=== PATIENT | male | born 1945 | race Hispanic/Latino ===

== ENCOUNTER 2018-06-30 19:54 | Emergency (ER) | payer MEDICARE ==
[2018-06-30] MEDS ORDERED: ONDANSETRON HCL 4 MG/2 ML VIAL ONE (20:19)
[2018-06-30] MEDS ORDERED: MORPHINE SULFATE 4 MG/1ML SYG ONE (20:20)
[2018-06-30 20:26] LABS: EOSINOPHILS % (AUTO) 2.2 % (0.0-8.0); HEMATOCRIT 47.2 % (42-54); LYMPHOCYTES % (AUTO) 24.2 % (21.0-51.0); MEAN CORPUSCULAR HEMOGLOBIN 31.4 pg (27.0-33.0); MEAN CORPUSCULAR HGB CONC 33.6 g/dL (32.0-36.0); MEAN CORPUSCULAR VOLUME 93.2 fL (79-99); MONOCYTES % (AUTO) 8.5 % (3.0-13.0); NEUTROPHILS % (AUTO) 64.1 % (40.0-77.0); PLATELET COUNT (AUTO) 266 K/uL (130-400); RED BLOOD CELL COUNT(AUTO) 5.07 MIL/uL (4.50-6.20); RED CELL DISTRIBUTION WIDTH 13.1 % (11.0-15.5); WHITE BLOOD COUNT (AUTO) 5.8 K/uL (4.8-10.8)
[2018-06-30 20:45] LABS: CREATININE 1.5 mg/dL (0.5-1.5); INR 0.96 (0.85-1.15); PARTIAL THROMBOPLASTIN TIME 26.4 SEC (26.3-35.5); PROTHROMBIN TIME 10.1 SEC (9.6-11.6)
[2018-06-30 20:48] LABS: B-TYPE NATRIURETIC PEPTIDE 40 pg/mL (0-100)
[2018-06-30 20:50] LABS: ALBUMIN 3.6 g/dL (3.5-5.0); BILIRUBIN,TOTAL 0.5 mg/dL (0.2-1.0); TOTAL PROTEIN, SERUM 7.5 g/dL (6.0-8.3)
[2018-06-30 21:14] LABS: APPEARANCE,URINE Clear (CLEAR); BILIRUBIN,URINE Negative (NEGATIVE); COLOR,URINE Yellow (YELLOW); GLUCOSE, URINE (UA) Negative (NEGATIVE); KETONES,URINE Negative (NEGATIVE); LEUKOCYTE ESTERASE ,URINE Negative (NEGATIVE); NITRATE,URINE Negative (NEGATIVE); OCCULT BLOOD,URINE Negative (NEGATIVE); PH,URINE 5.5 (5.0-8.0); PROTEIN,URINE Negative (NEGATIVE)
== END 2018-06-30 22:12 | disposition home or self-care (01) ==
LOC: EDH 19:54
DX: R10.12 Left upper quadrant pain (principal); I10 Essential (primary) hypertension; Z90.5 Acquired absence of kidney; Z88.0 Allergy status to penicillin
CPT/HCPCS: 36415; 74176; 80053; 81003; 82550; 83690; 83880; 84484; 85025; 85610; 85730; 93005; 96374; 96375; 99284; J2270; J2405

== ENCOUNTER 2021-09-07 03:47 | Observation (INO) | payer MEDICARE ==
[~2021-09-07] VITALS: Ht 160 cm; Wt 71.0 kg
[2021-09-07 04:08] LABS: BASOPHILS % (AUTO) 0.4 % (0.0-5.0); HEMATOCRIT 25.1 % (42-54); LYMPHOCYTES % (AUTO) 17.5 % (21.0-51.0); MEAN CORPUSCULAR HEMOGLOBIN 26.6 pg (27.0-33.0); MEAN CORPUSCULAR HGB CONC 31.1 g/dL (32.0-36.0); MEAN CORPUSCULAR VOLUME 85.7 fL (79-99); NEUTROPHILS % (AUTO) 73.6 % (40.0-77.0); PLATELET COUNT (AUTO) 336 K/uL (130-400); RED BLOOD CELL COUNT(AUTO) 2.93 MIL/uL (4.50-6.20); RED CELL DISTRIBUTION WIDTH 13.2 % (11.0-15.5); WHITE BLOOD COUNT (AUTO) 10.1 K/uL (4.8-10.8)
[2021-09-07 04:23] LABS: CREATININE 1.4 mg/dL (0.5-1.5); POTASSIUM 4.1 mmol/L (3.5-5.1)
[2021-09-07 04:27] LABS: ALBUMIN 2.1 g/dL (3.5-5.0); BILIRUBIN,TOTAL 0.1 mg/dL (0.2-1.0); TOTAL PROTEIN, SERUM 5.7 g/dL (6.0-8.3)
[2021-09-07] MEDS ORDERED: LEVETIRACETAM 500 MG/5 ML SD VIAL IV ONE (04:30)
[2021-09-07] MEDS ORDERED: 0.9%NACL 100ML 100 ML ONE (04:36)
[2021-09-07 05:13] LABS: APPEARANCE,URINE Clear (CLEAR); BILIRUBIN,URINE Negative (NEGATIVE); COLOR,URINE Yellow (YELLOW); GLUCOSE, URINE (UA) Negative (NEGATIVE); KETONES,URINE Negative (NEGATIVE); LEUKOCYTE ESTERASE ,URINE Negative (NEGATIVE); NITRATE,URINE Negative (NEGATIVE); OCCULT BLOOD,URINE Negative (NEGATIVE); PH,URINE 5.5 (5.0-8.0); PROTEIN,URINE Negative (NEGATIVE); UROBILINOGEN,URINE 0.2 mg/dL (0.2-1.0)
[2021-09-07] MEDS: LEVETIRACETAM 500 MG in 0.9%NACL 100ML 100 ML IV SCH ×2 (09:00→21:59)
[2021-09-07] MEDS ORDERED: 0.9%NACL 1000ML 1,000 ML IV ONE (09:00)
[2021-09-07] MEDS ORDERED: DIATR MEGLU/DIATRIZOATE SODIUM 30 ML BOTTLE ONE (10:47)
[2021-09-07 13:50] VITALS: BP 129/73
[2021-09-07] MEDS ORDERED: TAMS-1 PO (14:27)
[2021-09-07] MEDS ORDERED: OMEP40CA21 PO (14:27)
[2021-09-07] MEDS ORDERED: ACET-66 PO (14:27)
[2021-09-07] MEDS ORDERED: HYDR-4060 PO (14:27)
[2021-09-07] MEDS ORDERED: LORA10TA7 PO (14:27)
[2021-09-07] MEDS ORDERED: SUCR1TAB2 PO (14:27)
[2021-09-07] MEDS ORDERED: LOSA1TAB37 PO (14:27)
[2021-09-07] MEDS ORDERED: MORPHINE 2 MG SYG IVP PRN (15:30)
[2021-09-07] MEDS ORDERED: IOHEXOL-350 75 ML VIAL IV ONE (16:25)
[2021-09-07 19:43] VITALS: BP 117/64
[2021-09-07 23:27] VITALS: BP 113/58
[2021-09-08 03:33] VITALS: BP 108/56
[2021-09-08 07:05] VITALS: BP 117/52
[2021-09-08] MEDS: LEVETIRACETAM 500 MG in 0.9%NACL 100ML 100 ML IV SCH (08:14)
[2021-09-08 11:05] VITALS: BP 112/57
[2021-09-08 14:39] LABS: HEMATOCRIT 24.5 % (42-54); MEAN CORPUSCULAR HEMOGLOBIN 26.2 pg (27.0-33.0); MEAN CORPUSCULAR HGB CONC 30.6 g/dL (32.0-36.0); MEAN CORPUSCULAR VOLUME 85.7 fL (79-99); PLATELET COUNT (AUTO) 307 K/uL (130-400); RED BLOOD CELL COUNT(AUTO) 2.86 MIL/uL (4.50-6.20); RED CELL DISTRIBUTION WIDTH 13.1 % (11.0-15.5); WHITE BLOOD COUNT (AUTO) 5.9 K/uL (4.8-10.8)
[2021-09-08 14:46] LABS: POTASSIUM 3.5 mmol/L (3.5-5.1)
[2021-09-08 15:05] VITALS: BP 114/64
[2021-09-08] MEDS ORDERED: LEVE-43 PO (15:50)
[2021-09-08] MEDS ORDERED: DOCU240C25 PO (15:50)
[2021-09-08] MEDS ORDERED: FERR325T22 PO (15:50)
[2021-09-08] MEDS ORDERED: IRON SUCROSE COMPLEX 100 MG in 0.9%NACL 50ML 50 ML IV ONE (16:00)
[2021-09-08] MEDS ORDERED: IRON SUCROSE COMPLEX 100 MG/5 ML VIAL IVP SCH (16:30)
== END 2021-09-08 17:50 | disposition home or self-care (01) ==
LOC: EDH 03:47 → INTOOBSV 08:43 → EDHIP 08:43 → 4CH 13:51
PROVIDERS: ADMIT Internal Medicine; ATTEND Internal Medicine
DX: G40.409 Other generalized epilepsy and epileptic syndromes, not intractable, without status epilepticus (principal); C80.1 Malignant (primary) neoplasm, unspecified; C79.31 Secondary malignant neoplasm of brain; I12.9 Hypertensive chronic kidney disease with stage 1 through stage 4 chronic kidney disease, or unspecified chronic kidney disease; N18.30 Chronic kidney disease, stage 3 unspecified; D63.1 Anemia in chronic kidney disease; K21.9 Gastro-esophageal reflux disease without esophagitis; E88.09 Other disorders of plasma-protein metabolism, not elsewhere classified; E78.00 Pure hypercholesterolemia, unspecified; Z95.0 Presence of cardiac pacemaker; Z85.46 Personal history of malignant neoplasm of prostate; Z86.73 Personal history of transient ischemic attack (TIA), and cerebral infarction without residual deficits; Z79.899 Other long term (current) drug therapy; Z88.0 Allergy status to penicillin; W01.0XXA Fall on same level from slipping, tripping and stumbling without subsequent striking against object, initial encounter; Z90.5 Acquired absence of kidney; Z90.79 Acquired absence of other genital organ(s)
CPT/HCPCS: 36415 ×2; 70450; 71045; 72125; 74176; 74177; 80048; 80053; 81003; 82550; 84145; 84484; 85025; 85027; 86850; 86900; 86901; 93005; 96365; 96366 ×2; 96375 ×2; 96376; 99285; G0378 ×33; J1756; J1953 ×4; J7030; Q9963; Q9967

== ENCOUNTER 2021-09-28 01:27 | Emergency (ER) | payer MEDICARE ==
[~2021-09-28] VITALS: Ht 160 cm; Wt 69.9 kg
[~2021-09-28 01:27] MED LIST: ACET-66 PO; DOCU240C25 PO; FERR325T22 PO; HYDR-4060 PO; LEVE-43 PO; LORA10TA7 PO; LOSA1TAB37 PO; OMEP40CA21 PO; SUCR1TAB2 PO; TAMS-1 PO
[2021-09-28] MEDS ORDERED: LEVETIRACETAM 500 MG/5 ML SD VIAL IV ONE (01:52)
[2021-09-28] MEDS ORDERED: LEVETIRACETAM 1,000 MG in 0.9%NACL 100ML 100 ML IV ONE (02:00)
[2021-09-28] MEDS ORDERED: LEVETIRACETAM 500 MG/5 ML SD VIAL IV SCH (02:00)
[2021-09-28 02:03] LABS: BASOPHILS % (AUTO) 0.6 % (0.0-5.0); HEMATOCRIT 25.1 % (42-54); LYMPHOCYTES % (AUTO) 15.7 % (21.0-51.0); MEAN CORPUSCULAR HEMOGLOBIN 25.5 pg (27.0-33.0); MEAN CORPUSCULAR HGB CONC 30.3 g/dL (32.0-36.0); MEAN CORPUSCULAR VOLUME 84.2 fL (79-99); MONOCYTES % (AUTO) 8.6 % (3.0-13.0); NEUTROPHILS % (AUTO) 72.6 % (40.0-77.0); PLATELET COUNT (AUTO) 373 K/uL (130-400); RED BLOOD CELL COUNT(AUTO) 2.98 MIL/uL (4.50-6.20); RED CELL DISTRIBUTION WIDTH 13.6 % (11.0-15.5); WHITE BLOOD COUNT (AUTO) 8.1 K/uL (4.8-10.8)
[2021-09-28 02:12] LABS: CREATININE 1.3 mg/dL (0.5-1.5); POTASSIUM 4.6 mmol/L (3.5-5.1)
[2021-09-28 02:16] LABS: ALBUMIN 2.4 g/dL (3.5-5.0); BILIRUBIN,TOTAL 0.2 mg/dL (0.2-1.0)
[2021-09-28 03:47] VITALS: BP 106/62
[2021-09-28] MEDS ORDERED: LEVE-43 PO (04:12)
== END 2021-09-28 04:27 | disposition home or self-care (01) ==
LOC: EDH 01:27
DX: G40.909 Epilepsy, unspecified, not intractable, without status epilepticus (principal); D64.9 Anemia, unspecified; I10 Essential (primary) hypertension; Z88.0 Allergy status to penicillin; Z90.5 Acquired absence of kidney; Z79.899 Other long term (current) drug therapy; Z85.028 Personal history of other malignant neoplasm of stomach
CPT/HCPCS: 36415; 80053; 85025; 96365; 96366; 99284; J1953 ×2

== ENCOUNTER 2025-03-01 08:37 | Inpatient (IN) | payer MEDICARE, MEDICAID ==
[2025-03-01] VITALS (10 sets, daily range): BP systolic 111–148; BP diastolic 57–78; PULSE 54–69; RESP 16–20; TEMP 98–98.5; O2SAT 62–99
[~2025-03-01] VITALS: Ht 165.1 cm; Wt 74.8 kg
[~2025-03-01 08:37] MED LIST changes: -ACET-66 PO; -DOCU240C25 PO; +FAMO20TA8 PO; -FERR325T22 PO; -LORA10TA7 PO; -LOSA1TAB37 PO; +MEGE40TA33 PO; +METO-409 PO; -OMEP40CA21 PO; -SUCR1TAB2 PO; -TAMS-1 PO; +TAMS-55 PO
--- NOTE | 2025-03-01 09:09 | ERN ---
General Chief Complaint: Weakness Stated Complaint: WEAKNESS Time Seen by MD: 08:38 Source: patient History of Present Illness Initial Comments He has a history of prostate cancer on chemo/immunotherapy, hypertension and seizure presented with right upper limb weakness which started since Friday morning and persisted since then. It was associated with the headache on the right side. He was evaluated at [facility] on Friday revealing no acute intracranial abnormalities and was later discharged. Timing/Duration: 24 hours Severity: moderate Associated Symptoms: headaches Allergies: Coded Allergies: Penicillins (Unverified Allergy, Unknown, 09/07/21) Home Meds Active Scripts Levetiracetam (Keppra) 500 Mg Tablet, 500 MG PO BID for 15 Days, #30 TAB 0 Refills Prov:JYOTI TOWNSEND Sameer BURR SANDER 09/08/21 Reported Medications Famotidine (Famotidine) 20 Mg Tablet, 20 MG PO BID, TAB 07/05/23 Metoprolol Succinate (Metoprolol Succinate) 100 Mg Tab.er.24h, 100 MG PO DAILY, TAB 24 Megestrol Acetate (Megace 40 mg Tabs) 40 Mg Tablet, 40 MG PO BID, TAB 24 Tamsulosin HCl (Flomax) 0.4 Mg Cap.er.24h, 0.4 MG PO DAILY, CAPSULE.DR 09/07/21 Hydrocodone/Acetaminophen (Hydrocodon-Acetaminophen 5-325) 1 Each Tablet, 1 EACH PO Q4HPRN PRN for PAIN 7-10, TAB 09/07/21 Past Medical History Past Medical History: Cancer, Hypertension, Seizure Medical History Other: PROSTATE AND STOMACH CANCER Past Surgical History: Pacer/AICD, Other Surgical History Other: R NEPHRECTOMY ROS Dictation CONSTITUTIONAL: Complained of headache. No chills, no fever, no weakness, no diaphoresis, no malaise. HEAD/FACE: No signs of trauma. EENT: No eye pain, no blurred vision, no tearing, no double vision, no ear pain, no ear discharge, no nose pain, no nasal congestion, no throat pain, no throat swelling, no mouth pain. RESPIRATORY: No cough, no orthopnea, no SOB, no stridor, no wheezing. CARDIOVASCULAR: No chest pain, no edema, no palpitations, no syncope. GASTROINTESTINAL/ABDOMINAL: No abdominal pain, no constipation, no diarrhea, no nausea, no vomiting. GENITOURINARY: No abnormal discharge, no dysuria, no frequent urination, no hematuria. No complaints of pain in the genitals. MUSCULOSKELETAL: Left shoulder pain with stiffness. INTEGUMENTARY: No change in color, no change in hair/nails, no dryness, no lesion, no lumps, no rash. NEUROLOGICAL/PSYCH: Stated weakness in right upper extremity. HEMATOLOGIC/LYMPHATIC: Not anemic, no history of blood clots, no apparent bleeding, no bruising, glands not swollen. All Systems Negative, Except as Noted. Physical Exam Physical Exam Dictation VITAL SIGNS: Reviewed. GENERAL APPEARANCE: Alert, oriented x3, no acute distress, obese. HEAD AND FACE: Non-traumatic. EYES: PERRL, pink conjunctivas, eyelid no trauma, anterior chamber clear. EARS: Pinnas intact and no signs of trauma or erythema. Ear canals clear and no discharge. TMs no erythema. NOSE: No discharge, no bleeding. OROPHARYNX: Mouth normal, teeth no caries, tongue pink. Pharynx clear, no erythema. Tonsils no exudates, no abscesses noted. Mucous membrane moist. NECK: Supple, non-tender, no thyromegaly, no masses, no JVD, no bruits. BREAST: Deferred. CHEST: No tenderness, no crepitus, no paradoxical movement, no retractions. LUNGS: Clear, well-ventilated, symmetric, no rales, no wheezing, no rhonchi, no stridor, good breath sounds bilaterally. HEART: Regular rate, regular rhythm, no murmur, no gallops. VASCULAR: No peripheral edema. ABDOMEN: Soft, positive bowel sounds, nondistended, no guarding, nontender, no rebound, no masses no hepatomegaly, no splenomegaly, no King's sign, no hernias. RECTAL: Deferred. GENITAL: Deferred. NEUROLOGICAL: Normal speech, gross motor function intact, gross sensory function intact. MUSCULOSKELETAL: Restricted painful movement of the left shoulder. EXTREMITIES: Restricted painful movement of the left shoulder SKIN: Color pink, dry, no turgor, no rash, no lacerations, no abrasions, no contusions. LYMPHATICS: Deferred. Results Laboratory and Microbiology Lab and Micro Result Laboratory Tests Test 03/01/25 09:09 03/01/25 10:11 White Blood Count 4.9 K/uL (4.8-10.8) Red Blood Count 5.26 MIL/uL (4.50-6.20) Hemoglobin 16.6 g/dL (14.0-18.0) Hematocrit 51.1 % (42-54) Mean Corpuscular Volume 97.1 fL (79-99) Mean Corpuscular Hemoglobin 31.6 pg (27.0-33.0) Mean Corpuscular Hemoglobin Concent 32.5 g/dL (32.0-36.0) Red Cell Distribution Width 13.2 % (11.0-15.5) Platelet Count 197 K/uL (130-400) Mean Platelet Volume 8.6 fL (7.5-10.5) Immature Granulocyte % (Auto) 0.4 % (0-1) Neutrophils (%) (Auto) 71.1 % (40.0-77.0) Lymphocytes (%) (Auto) 18.1 % (21.0-51.0) L Monocytes (%) (Auto) 8.6 % (3.0-13.0) Eosinophils (%) (Auto) 1.2 % (0.0-8.0) Basophils (%) (Auto) 0.6 % (0.0-5.0) Neutrophils # (Auto) 3.5 K/uL (1.8-7.7) Lymphocytes # (Auto) 0.9 K/uL (1.0-4.8) L Monocytes # (Auto) 0.4 K/uL (0.1-1.0) Eosinophils # (Auto) 0.06 K/uL (0.00-0.70) Basophils # (Auto) 0.03 K/uL (0.00-0.20) Absolute Immature Granulocyte (auto 0.02 K/uL (0-1) Nucleated Red Blood Cells 0.0 % (0.0-0.19) Sodium Level 143 mmol/L (136-145) Potassium Level 4.8 mmol/L (3.5-5.1) Chloride Level 108 mmol/L (101-111) Carbon Dioxide Level 28 mmol/L (21-32) Blood Urea Nitrogen 22 mg/dL (7-18) H Creatinine 1.1 mg/dL (0.5-1.3) Glomerular Filtration Rate Calc 68 mL/min (>90) Random Glucose 113 mg/dL (70-105) H Total Calcium 9.1 mg/dL (8.5-10.1) Magnesium Level 1.90 mg/dL (1.80-2.40) Total Creatine Kinase 20 U/L (21-232) L Troponin I High Sensitivity 7 ng/L (4-75) Urine Color LIGHT-YELLOW (YELLOW) Urine Appearance CLEAR (CLEAR) Urine pH 6.0 (5.0-8.0) Urine Specific [place] 1.020 (1.001-1.031) Urine Protein NEGATIVE mg/dL (NEGATIVE) Urine Glucose (UA) NEGATIVE mg/dL (NEGATIVE) Urine Ketones NEGATIVE mg/dL (NEGATIVE) Urine Occult Blood NEGATIVE (NEGATIVE) Urine Nitrate NEGATIVE (NEGATIVE) Urine Bilirubin NEGATIVE mg/dL (NEGATIVE) Urine Urobilinogen 0.2 mg/dL (0.2-1.0) Urine Leukocyte Esterase NEGATIVE [place]/uL EKG/XRAY/US/CT/MRI X-RAY Comment [address] [id number] IMAGING REPORT Addendum PATIENT: JULIA LENTZ MR#: [id number] : 1945 SEX: M AGE: 79 LOCATION: [facility] ORDER 1 STATUS: [facility] REPORT#: [id number] SERVICE [id number] REASON: cp ORDERING PHYSICIAN: BENY DELEON MD PROCEDURE: CXR1VW - CHEST 1VW ADDENDUM REPORT ADDENDUM: Results were shared by telephone at 11:59 am on 03-01-[address] Katelin León. /[place] EXAM: CR Chest, 1 View. CLINICAL HISTORY: Chest pain. COMPARISON: Radiograph dated July 05, 2023 Findings: AP view of the chest is submitted. Broken Mediport catheter tubing oriented cephalad likely terminating within the right internal jugular vein, clinical correlation is advised. Mild left basilar atelectasis. No pleural effusion or pneumothorax. Pacemaker leads are unchanged in positions. Heart size is stable. Pulmonary vessels and interstitial markings are within normal limits. IMPRESSION: 1. Broken Mediport catheter tubing likely terminating within the right internal jugular vein. 2. No pneumothorax or pleural effusion. /[place] DICTATED BY: BEVERLY ALLEN Jr., MD DATE: 03/01/25 1204 ELECTRONICALLY SIGNED BY: DATE: EXAM: CR Chest, 1 View. CLINICAL HISTORY: Chest pain. COMPARISON: Radiograph dated July 05, 2023 Findings: AP view of the chest is submitted. Broken Mediport catheter tubing oriented cephalad likely terminating within the right internal jugular vein, clinical correlation is advised. Mild left basilar atelectasis. No pleural effusion or pneumothorax. Pacemaker leads are unchanged in positions. Heart size is stable. Pulmonary vessels and interstitial markings are within normal limits. IMPRESSION: 1. Broken Mediport catheter tubing likely terminating within the right internal jugular vein. 2. No pneumothorax or pleural effusion. /[place] DICTATED BY: BEVERLY ALLEN Jr., MD DATE: 03/01/25 115 ELECTRONICALLY SIGNED BY: BEVERLY ALLEN Jr., MD DATE: 03/01/[address] Scan Comment IMAGING REPORT Signed PATIENT: JULIA LENTZ MR#: [id number] : 1945 SEX: M AGE: 79 LOCATION: [facility] ORDER 5 STATUS: REG REPORT#: [id number] SERVICE REASON: right side weakness ORDERING PHYSICIAN: BENY DELEON MD PROCEDURE: HEAD WO - CT HEAD/BRAIN W/O CONTRAST EXAM: Non-contrast CT examination of the Brain CLINICAL HISTORY: Trauma. TECHNIQUE: Thin collimated axial CT images of the brain were obtained, with sagittal and coronal reformatted images also submitted. CT scan done according to ALARA (As Low as Reasonably Achievable). CONTRAST USED: None. COMPARISON: 09/07/21. FINDINGS: No acute intracranial abnormality is present. No acute cortical infarction, hemorrhage, mass, or mass effect. Stable hypodense area with gliosis in the right occipital lobe, suggesting sequelae of prior insult. No hydrocephalus or abnormal extra-axial fluid collections. The posterior fossa is unremarkable. The skull base and calvarium are intact. The included portions of the paranasal sinuses and mastoid air cells are clear. IMPRESSION: No acute intracranial abnormality is present. Stable hypodense area with gliosis in the right occipital lobe, suggesting sequelae of prior insult. There is an interval absence of the subcortical hypodensity in the left high frontal lobe. No new finding. Clinical correlation and further evaluation with MRI of the brain are recommended. /[place] DICTATED BY: BEVERLY ALLEN Jr., MD DATE: 03/01/251158 ELECTRONICALLY SIGNED BY: BEVERLY ALLEN Jr., MD DATE: 03/01/251158 MDM MDM: Differential diagnosis: Stroke, transient ischemic attack, tension headache, trapezius muscle strain, carpal tunnel syndrome, Broken Mediport Rationale: Tests considered and ordered secondary to shared decision making include: CBC, BMP, magnesium, ECG, troponin I, urinalysis, CT head Previous outside records reviewed: Old ER visits. Risk of complication and/or morbidity or mortality of patient management: None Medications-Per medication reconciliation Need for hospitalization: Patient does meet criteria for hospitalization. Need for emergency major/minor surgery: No There are no social concerns with this patient. Prescription drug management Prescriptions will include symptomatic care Patient's prior external medical records from other ER visits were reviewed by me as indicated. Prior testing and results from previous visits were reviewed. Prior tests were taken into account with medical decision making and resource utilization, independent historian/historians were used to obtain complete medic al history. I independently interpreted the test that were performed, results were reviewed by me and considered findings on radiology if ordered. Medical management and examination interpretation discussions were had by me with other qualified healthcare professionals as indicated for the patient's care. She had symptoms of right upper extremity discomfort and chest x-ray revealed broken MediPort catheter. The catheter was placed 1 year back was unable to access recently. Talked to Dr. Wylie for retrieving the port. Patient is admitted for the procedure under hospitalist group.. 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 Procedure CATH 03/01/25 Logged Request 11:58 Obtain Consent For: CPOE 03/01/25 Transmitted 11:58 Vital Signs Date Time Temp Pulse Resp B/P (MAP) Pulse Ox O2 Delivery O2 Flow Rate FiO2 03/01/25 09:16 97.3 57 16 111/68 95 Room Air* 0 21 03/01/25 08:38 97.7 55 20 140/74 99 Room Air 0 DX & DISP Disposition: Inpatient Decision to Admit Time: 12:05 Departure Impression: Primary Impression: Tension headache Additional Impressions: Strain of right trapezius muscle, Portocaval shunt malfunction Condition: Stable Referrals: SELF,REFERRAL (PCP) BENY DELEON MD Mar 01, 2025 09:09 CIRILO PLEITEZ MD Mar 01, 2025 09:14
--- NOTE | 2025-03-01 09:14 | EKG ---
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
[2025-03-01 09:16] LABS: IMMATURE GRANULOCYTE ABSOLUTE 0.02 K/uL (0-1); NUCLEATED RED BLOOD CELLS 0.0 % (0.0-0.19); PLATELET COUNT (AUTO) 197 K/uL (130-400); RED BLOOD CELL COUNT(AUTO) 5.26 MIL/uL (4.50-6.20); RED CELL DISTRIBUTION WIDTH 13.2 % (11.0-15.5); WHITE BLOOD COUNT (AUTO) 4.9 K/uL (4.8-10.8)
[2025-03-01 09:24] LABS: CREATININE 1.1 mg/dL (0.5-1.3); GLOMERULAR FILTR. RATE CALC 68.0 mL/min (>90); GLUCOSE,RANDOM 113.0 mg/dL (70-105); SODIUM SERUM 143.0 mmol/L (136-145); UREA NITROGEN, BLOOD 22.0 mg/dL (7-18)
[2025-03-01 09:29] LABS: CREATINE KINASE, TOTAL 20.0 U/L (21-232)
--- NOTE | 2025-03-01 10:32 | NUR ---
SLING APPLIED TO R ARM
[2025-03-01 10:33] LABS: APPEARANCE,URINE CLEAR (CLEAR); GLUCOSE, URINE (UA) NEGATIVE (NEGATIVE); LEUKOCYTE ESTERASE ,URINE NEGATIVE Leu/uL (NEGATIVE); NITRATE,URINE NEGATIVE (NEGATIVE); OCCULT BLOOD,URINE NEGATIVE (NEGATIVE)
[2025-03-01 10:38] LABS: ADD UA MICROSCOPIC NO
--- NOTE | 2025-03-01 10:53 | HMCIMG ---
EXAM: CR Chest, 1 View. CLINICAL HISTORY: Chest pain. COMPARISON: Radiograph dated July 05, 2023 Findings: AP view of the chest is submitted. Broken Mediport catheter tubing oriented cephalad likely terminating within the right internal jugular vein, clinical correlation is advised. Mild left basilar atelectasis. No pleural effusion or pneumothorax. Pacemaker leads are unchanged in positions. Heart size is stable. Pulmonary vessels and interstitial markings are within normal limits. IMPRESSION: 1. Broken Mediport catheter tubing likely terminating within the right internal jugular vein. 2. No pneumothorax or pleural effusion. /[place]
--- NOTE | 2025-03-01 11:00 | HMCIMG ---
EXAM: Non-contrast CT examination of the Brain CLINICAL HISTORY: Trauma. TECHNIQUE: Thin collimated axial CT images of the brain were obtained, with sagittal and coronal reformatted images also submitted. CT scan done according to ALARA (As Low as Reasonably Achievable). CONTRAST USED: None. COMPARISON: 09/07/21. FINDINGS: No acute intracranial abnormality is present. No acute cortical infarction, hemorrhage, mass, or mass effect. Stable hypodense area with gliosis in the right occipital lobe, suggesting sequelae of prior insult. No hydrocephalus or abnormal extra-axial fluid collections. The posterior fossa is unremarkable. The skull base and calvarium are intact. The included portions of the paranasal sinuses and mastoid air cells are clear. IMPRESSION: No acute intracranial abnormality is present. Stable hypodense area with gliosis in the right occipital lobe, suggesting sequelae of prior insult. There is an interval absence of the subcortical hypodensity in the left high frontal lobe. No new finding. Clinical correlation and further evaluation with MRI of the brain are recommended. /[place]
--- NOTE | 2025-03-01 12:05 | NUR ---
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
--- NOTE | 2025-03-01 12:46 | HP ---
[facility] HISTORY AND PHYSICAL Date of Service: Mar 01, 2025 Time of Service: 12:28 HISTORY OF PRESENT ILLNESS: Date of service: 03/01/2025, patient was seen in ER room five 79-year-old male with underlying history of metastatic prostate cancer currently on outpatient immunotherapy, hypertension, history of pacemaker placement, history of seizure maintained on outpatient treatment with Keppra who presented to the ER for further evaluation of right shoulder and arm pain and nonresolving headache. Patient states that symptoms have been ongoing since Friday, four days ago and reports that his headache is 10/10 in severity. Headache quality is pulsating in mildly worsened with lights. Denies any neck stiffness. He was recently seen in [facility] and was discharged from the hospital on conservative therapy. He has been having right shoulder and right arm pain and also reports having mild pain around the port area. He has noticed some mild weakness to the right upper extremity. He is currently followed by Dr. Bustamante as outpatient with Oncology. Currently receiving immunotherapy as outpatient with last dose being given15 days ago. He was having issues with access of the port as outpatient and port could not be used on his last session of immunotherapy. Patient denies any falls or syncopal episode. He is followed by Dr. Aponte as outpatient for further management of his underlying cardiac comorbidities. He reports having history of pacemaker placement due to bradycardia. Denies any abdominal pain, vomiting and reports having bowel movement. Denies having fevers or chills otherwise. Denies any previous history of chronic headache. He is currently maintained on outpatient treatment with Keppra for management of seizures. Denies being told he has previous history of CVA. On presentation, patient was noted to be afebrile with T-max of 97.7 F, heart rate of 55, blood pressure of 140/74. On presentation showed WBC count of 4900, hemoglobin of 16.6, platelet count of 978659 BMP showed sodium of 143, potassium 4.8, chloride of 108, BUN of 22, creatinine 1.1, blood glucose of 113, magnesium of 1.9, high sensitivity cardiac troponin of seven. Chest x-ray showed findings of broken MediPort catheter tubing likely terminating within the right internal jugular vein. CT of the head without contrast showed stable hypodense area with gliosis in the right occipital lobe suggestive of prior old CVA. No acute intracranial bleeding was noted. Patient will be admitted for further evaluation of nonresolving headache ongoing for the past four days. Consultation with Interventional Radiology will be requested for further removal of the broken MediPort and replacement as well. Patient's primary oncologist will be notified about patient's admission. We will see how patient progresses in the next 24-48 hours. Patient will be started on IV hydration, all home medications will be resumed including Keppra. REVIEW OF SYSTEMS CONSTITUTIONAL: Denies fevers, chills, or night sweats. No unintentional weight loss reported. NEUROLOGICAL: non resolving headache x 4 days, right arm and shoulder pain ENT: No hearing loss, otalgia, otorrhea, rhinitis, rhinorrhea, hoarseness, or sore throat. CARDIOVASCULAR: Denies any exertional angina, dyspnea on exertion, orthopnea, paroxysmal nocturnal dyspnea, palpitations, life-threatening arrhythmias, claudication. PULMONARY: Denies any shortness of breath, cough, phlegm/sputum, hemoptysis, pleuritic chest pain. SLEEP: Reports having headache, Denies daytime somnolence or napping. Denies difficulty falling asleep, staying asleep, waking from sleep. Denies knowledge of snoring. GASTROINTESTINAL: Denies any type of dysphagia to either liquids or solids. Denies nausea, vomiting, pyrosis, early satiety, abdominal pain, diarrhea, constipation, or changes in stool consistency or caliber. Denies coffee-ground emesis, hematemesis, hematochezia, or melanotic stools. GENITOURINARY: Denies frequency, urgency, nocturia, hematuria or incontinence (Storage/Irritative symptoms.) Low urinary stream, straining to void, urinary intermittency or hesitancy, splitting of the voiding stream, terminal dribbling. ENDOCRINOLOGIC: Denies polyuria, polydipsia, polyphagia or heat/cold intolerances. HEMATOLOGIC: Denies thrombophilia/previous clots, or coagulopathy/bleeding dis orders. ONCOLOGIC: Denies personal history of malignancy. DERMATOLOGIC: Denies rashes or pruritus. PSYCHIATRIC: Denies any suicidal or homicidal ideation. Denies hallucinations. Past Medical History: Seizure disorder Hypertension Permanent pacemaker Stage IV prostate cancer on immunotherapy Past Surgical History: Right nephrectomy Family History: No family history of early coronary artery disease Social History: Independent with ADLs. Lives with family. Allergies: Penicillin Coded Allergies: Penicillins (Unverified Allergy, Unknown, 09/07/21) PHYSICAL EXAM GENERAL APPEARANCE: The patient is awake, alert, and oriented, in no acute cardiopulmonary distress. NEUROLOGICAL: Cranial nerves II-XII grossly intact. Motor is 5/5 in bilateral upper and lower extremities proximal to distal. No sensory deficits. HEENT: Face is symmetric. Pupils are equal and reactive. Extraocular movements are intact. NECK: Supple. No JVD. No thyromegaly. No submental, submandibular, pre-/postauricular, occipital or supraclavicular lymphadenopathy. CHEST: Normal chest expansion. No Telemetry. LUNGS: Absence of any rales, rhonchi or any wheezing. CARDIOVASCULAR: Regular. S1 and S2 normal. No appreciable rubs, murmurs or gallops. ABDOMEN: Soft, nontender, and nondistended. There is no rebound, voluntary guarding, or rigidity. : Deferred. No Pizarro. EXTREMITIES: Non-edematous and not cyanotic. No clubbing. Good capillary refill. SKIN: No skin breakdown. Vital Sign (Last 24 Hours) 03/01/25 09:16 Temp 97.3 Pulse 57 Resp 16 B/P (MAP) 111/68 Pulse Ox 95 O2 Delivery Room Air* O2 Flow Rate 0 FiO2 21 LABS: Laboratory: Test 03/01/25 10:11 03/01/25 09:09 Range/Units Urine Color LIGHT-YELLOW YELLOW Urine Appearance CLEAR CLEAR Urine pH 6.0 5.0-8.0 Urine Specific Trion 1.020 1.001-1.031 Urine Protein NEGATIVE NEGATIVE mg/dL Urine Glucose (UA) NEGATIVE NEGATIVE mg/dL Urine Ketones NEGATIVE NEGATIVE mg/dL Urine Occult Blood NEGATIVE NEGATIVE Urine Nitrate NEGATIVE NEGATIVE Urine Bilirubin NEGATIVE NEGATIVE mg/dL Urine Urobilinogen 0.2 0.2-1.0 mg/dL Urine Leukocyte Esterase NEGATIVE NEGATIVE P[place]o/uL White Blood Count 4.9 4.8-10.8 K/uL Red Blood Count 5.26 4.50-6.20 MIL/uL Hemoglobin 16.6 14.0-18.0 g/dL Hematocrit 51.1 42-54 % Mean Corpuscular Volume 97.1 79-99 fL Mean Corpuscular Hemoglobin 31.6 27.0-33.0 pg Mean Corpuscular Hemoglobin Concent 32.5 32.0-36.0 g/dL Red Cell Distribution Width 13.2 11.0-15.5 % Platelet Count 197 130-400 K/uL Mean Platelet Volume 8.6 7.5-10.5 fL Immature Granulocyte % (Auto) 0.4 0-1 % Neutrophils (%) (Auto) 71.1 40.0-77.0 % Lymphocytes (%) (Auto) 18.1 L 21.0-51.0 % Monocytes (%) (Auto) 8.6 3.0-13.0 % Eosinophils (%) (Auto) 1.2 0.0-8.0 % Basophils (%) (Auto) 0.6 0.0-5.0 % Neutrophils # (Auto) 3.5 1.8-7.7 K/uL Lymphocytes # (Auto) 0.9 L 1.0-4.8 K/uL Monocytes # (Auto) 0.4 0.1-1.0 K/uL Eosinophils # (Auto) 0.06 0.00-0.70 K/uL Basophils # (Auto) 0.03 0.00-0.20 K/uL Absolute Immature Granulocyte (auto 0.02 0-1 K/uL Nucleated Red Blood Cells 0.0 0.0-0.19 % Sodium Level 143 136-145 mmol/L Potassium Level 4.8 3.5-5.1 mmol/L Chloride Level 108 101-111 mmol/L Carbon Dioxide Level 28 21-32 mmol/L Blood Urea Nitrogen 22 H 7-18 mg/dL Creatinine 1.1 0.5-1.3 mg/dL Glomerular Filtration Rate Calc 68 >90 mL/min Random Glucose 113 H 70-105 mg/dL Total Calcium 9.1 8.5-10.1 mg/dL Magnesium Level 1.90 1.80-2.40 mg/dL Total Creatine Kinase 20 L 21-232 U/L Troponin I High Sensitivity 7 4-75 ng/L Current Medications Medications (Trade) Dose Ordered Sig/Lulu Route PRN Reason Start Time Stop Time Status Last Admin Dose Admin Acetaminophen (TYLenol 325MG TAB) 650 mg Q6H PRN PO MILD PAIN (1-3) 03/01/25 12:30 03/31/25 12:29 Ipratropium [place] (AtrovENT UD) 0.5 mg Q6H PRN IH SHORTNESS OF BREATH 03/01/25 12:30 03/31/25 12:29 Levetiracetam (kepPRA 500 MG TABLET) 500 mg BID PO 03/01/25 21:00 03/31/25 20:59 Ondansetron HCl (zoFRAN 4MG INJ) 4 mg Q6H PRN IVP NAUSEA/VOMITING 03/01/25 12:30 03/31/25 12:29 Sodium Chloride 1,000 ml @ 50 mls/hr Q20H IV 03/01/25 12:30 03/31/25 12:29 DIAGNOSTICS / RADIOLOGY: SERVICE 0850 REASON: cp ORDERING PHYSICIAN: BENY DELEON MD PROCEDURE: CXR1VW - CHEST 1VW ADDENDUM REPORT ADDENDUM: Results were shared by telephone at 11:59 am on 03-01-[address] Katelin León. /[place] EXAM: CR Chest, 1 View. CLINICAL HISTORY: Chest pain. COMPARISON: Radiograph dated July 05, 2023 Findings: AP view of the chest is submitted. Broken Mediport catheter tubing oriented cephalad likely terminating within the right internal jugular vein, clinical correlation is advised. Mild left basilar atelectasis. No pleural effusion or pneumothorax. Pacemaker leads are unchanged in positions. Heart size is stable. Pulmonary vessels and interstitial markings are within normal limits. IMPRESSION: 1. Broken Mediport catheter tubing likely terminating within the right internal jugular vein. 2. No pneumothorax or pleural effusion. /[place] DICTATED BY: BEVERLY ALLEN Jr., MD DATE: 03/01/25 1204 SERVICE REASON: right side weakness ORDERING PHYSICIAN: BENY DELEON MD PROCEDURE: HEAD WO - CT HEAD/BRAIN W/O CONTRAST EXAM: Non-contrast CT examination of the Brain CLINICAL HISTORY: Trauma. TECHNIQUE: Thin collimated axial CT images of the brain were obtained, with sagittal and coronal reformatted images also submitted. CT scan done according to ALARA (As Low as Reasonably Achievable). CONTRAST USED: None. COMPARISON: 09/07/21. FINDINGS: No acute intracranial abnormality is present. No acute cortical infarction, hemorrhage, mass, or mass effect. Stable hypodense area with gliosis in the right occipital lobe, suggesting sequelae of prior insult. No hydrocephalus or abnormal extra-axial fluid collections. The posterior fossa is unremarkable. The skull base and calvarium are intact. The included portions of the paranasal sinuses and mastoid air cells are clear. IMPRESSION: No acute intracranial abnormality is present. Stable hypodense area with gliosis in the right occipital lobe, suggesting sequelae of prior insult. There is an interval absence of the subcortical hypodensity in the left high frontal lobe. No new finding. Clinical correlation and further evaluation with MRI of the brain are recommended. 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, POA Right shoulder/arm pain, POA History of hypertension, POA PLAN: Patient will be admitted to medical-surgical floor under telemetry monitoring Consultation has already been requested with Interventional Radiology to have the MediPort removed and a new Port-A-Cath placed for today, patient will be kept NPO We will provide patient with a dose of Toradol IV for management of headache, patient's case was discussed with Neurology, if headache is nonresolving in the next24 hours, neurology is available to be consulted, patient does have underlying pacemaker and we will need cardiac evaluation if patient needs MRI this admission for further evaluation of headache We will start patient on gentle hydration with NS at 50 mL/hour Patient's case was discussed with primary oncologist Dr. Bustamante, we will follow up recommendations Patient will continue with anti seizure medication with Keppra patient has some pain to the right trapezius area, we will place lidoderm patch for pain control Continue with antihypertensives and rest of the home medications once reconciled and updated We will check CRP and procalcitonin to rule out any occult infection All labs will be repeated in the morning, we will obtain a right shoulder x-ray, we will see how patient progresses in the next 24-48 hours, we will obtain physical therapy evaluation Date of service: 03/01/2025 Plan of care was discussed with patient at bedside, Zak Prieto MD Advanced Care Planning: Which of the following were discussed: Hospice care: Yes __ No _X_ Therapeutic options: Yes _X_ No __ Advance directives: Yes _X_ No __ Other discussions: Discussed with who?: Patient Voluntary nature of this service was explained to the patient? Yes _x_ No __ Amount of time spent: 20 minutes ZAK PRIETO MD Mar 01, 2025 12:46
[2025-03-01 12:50] LABS: INR 1.01 (0.85-1.15)
[2025-03-01 12:55] LABS: ASPARTATE AMINOTRANSFERASE 15.0 U/L (10-37); LACTATE DEHYDROGENASE 154.0 U/L (81-234); TOTAL PROTEIN, SERUM 6.6 g/dL (6.0-8.3)
[2025-03-01] MEDS: 0.9%NACL 1000ML 1,000 ML IV SCH (13:10)
[2025-03-01] MEDS ORDERED: LIDOCAINE HCL 1% MDV 50ML VIAL ONE ×2 (13:10→14:33)
[2025-03-01] MEDS ORDERED: IOHEXOL-350 50ML VIAL IV ONE (13:10)
[2025-03-01] MEDS ORDERED: HEParin-NS 1,000 UNIT/500 ML 1,000 ML IV ONE (13:11)
[2025-03-01] MEDS ORDERED: LIDOCAINE 5% TOPICAL PATCH TP ONE (13:30)
--- NOTE | 2025-03-01 13:32 | NUR ---
PT TO [employer] DITCHING THEN 316
[2025-03-01] MEDS ORDERED: MIDAZOLAM HCL 1 MG/ML 2ML VIAL ONE (13:36)
--- NOTE | 2025-03-01 14:09 | HMCIMG ---
EXAM: CR right Shoulder, 2 View. CLINICAL HISTORY: right shoudler pain, r/o any fractures or dislocation COMPARISON: None provided. FINDINGS: BONES: No acute fracture or aggressive appearing osseous lesion. JOINTS: No dislocation. The joint spaces are normal. SOFT TISSUES: The soft tissues are unremarkable. IMPRESSION: No acute abnormality evident on examination of the right shoulder. No acute fracture or dislocation. /[place]
--- NOTE | 2025-03-01 14:24 | CONS ---
SCARLET GARZA Valentino 03/01/25 1423: CONSULT REFERRING PHYSICIAN: Dr. Zak Prieto REASON FOR CONSULT: Hospitalization of oncology patient. Patient Mediport catheter broken likely terminating in right internal jugular vein. Patient is being seen by IR for removal and replacement. HISTORY HPI: 79-year-old male with underlying history of metastatic prostate cancer currently on outpatient immunotherapy, hypertension, history of pacemaker placement, history of seizure maintained on outpatient treatment with Keppra who presented to the ER for further evaluation of right shoulder and arm pain and nonresolving headache. Patient states that symptoms have been ongoing since Friday, four days ago and reports that his headache is 10/10 in severity. Headache quality is pulsating in mildly worsened with lights. Denies any neck stiffness. He was recently seen in [facility] and was discharged from the hospital on conservative therapy. He has been having right shoulder and right arm pain and also reports having mild pain around the port area. He has noticed some mild weakness to the right upper extremity. He is currently followed by Dr. Leo as outpatient with Oncology. Currently receiving immunotherapy as outpatient with last dose being given15 days ago. He was having issues with access of the port as outpatient and port could not be used on his last session on if immunotherapy. Patient denies any falls or syncopal episode. He is followed by Dr. Aponte as outpatient for further management of his underlying cardiac comorbidities. He reports having history of pacemaker placement due to bradycardia. Denies any abdominal pain, vomiting and reports having bowel movement. Denies having fevers or chills otherwise. Denies any previous history of chronic headache. He is currently maintained on outpatient treatment with Keppra for management of seizures. Denies being told he has previous history of CVA. On presentation, patient was noted to be afebrile with T-max of 97.7 F, heart rate of 55, blood pressure of 140/74. Remarkable labs on admission: WBC count of 4900, hemoglobin of 16.6, platelet count of 947450. BMP showed sodium of 143, potassium 4.8, chloride of 108, BUN of 22, creatinine 1.1, blood glucose of 113, magnesium of 1.9, high sensitivity cardiac troponin of seven. Chest x-ray showed findings of broken MediPort catheter tubing likely terminating within the right internal jugular vein. CT of the head without contrast showed stable hypodense area with gliosis in the right occipital lobe suggestive of prior old CVA. No acute intracranial bleeding was noted. Patient admitted for further evaluation of nonresolving headache ongoing for the past four days. Interventional Radiology requested for further removal of the broken MediPort and replacement. PMH: Seizure disorder Hypertension Permanent pacemaker Stage IV prostate cancer on immunotherapy PSH: Right nephrectomy SH: independent with ADLs lives with family FH: No pertinent family history ALLERGIES: Coded Allergies: Penicillins (Unverified Allergy, Unknown, 09/07/21) CURRENT MEDS: Current Medications Medications (Trade) Dose Ordered Sig/Lulu Route PRN Reason Start Time Stop Time Status Last Admin Sodium Chloride 1,000 ml @ 50 mls/hr Q20H IV 03/01/25 12:30 03/31/25 12:29 03/01/25 13:10 Acetaminophen (TYLenol 325MG TAB) 650 mg Q6H PRN PO MILD PAIN (1-3) 03/01/25 12:30 03/31/25 12:29 Ondansetron HCl (zoFRAN 4MG INJ) 4 mg Q6H PRN IVP NAUSEA/VOMITING 03/01/25 12:30 03/31/25 12:29 Levetiracetam (kepPRA 500 MG TABLET) 500 mg BID PO 03/01/25 21:00 03/31/25 20:59 Ipratropium [place] (AtrovENT UD) 0.5 mg Q6H PRN IH SHORTNESS OF BREATH 03/01/25 12:30 03/31/25 12:29 Pantoprazole Sodium (PROTonix 40MG INJ) 40 mg Q24H IVP 03/01/25 13:00 03/31/25 12:59 03/01/25 13:10 Sacubitril/ Valsartan (Entresto 24 Mg-26 Mg Tablet) 1 each BID PO 03/01/25 21:00 03/31/25 20:59 REVIEW OF SYSTEMS CONSTITUTIONAL: No FEVER, No SWEATS, No CHILLS, No WEIGHT LOSS HEENT: No JAUNDICE, No SORE THROAT, No SINUS PRESSURE, No VISION CHANGES RESPIRATORY: No COUGH, No CHEST PAIN, No SHORTNESS OF BREATH, No HEMOPTYSIS CARDIOVASCULAR: No PALPATIONS, No DYSPNEA ON EXERTION, No SYNCOPE GASTROINTESTINAL: No NAUSEA, No VOMITING, No DIARRHEA, No DYSPHAGIA, No CONSTIP ATION, No ABDOMINAL PAIN, No HEMATEMESIS, No HEMATOCHEZIA, No MELENA GENITOURINARY: No DYSURIA, No HEMATURIA HEMATOLOGIC/LYMPHATIC: No EASY BRUISING, No CERVICAL ADENOPATHY, No AXILLARY ADENOPATHY, No INGUINAL ADENOPATHY MUSCULOSKELETAL: No BONE PAIN, No MASS; NORMAL RANGE OF MOTION SKIN/BREASTS: No BREAST MASS, No NIPPLE INVERSION, No RASH NEUROLOGICAL: WEAKNESS-EXTREMETIES, DIPLOPIA, NUMBNESS, TINGLING PSYCHOLOGICAL: No SUICIDAL IDEATION PHYSICAL EXAM VITALS: Vital Signs Date Time Temp Pulse Resp B/P (MAP) Pulse Ox O2 Delivery O2 Flow Rate FiO2 03/01/25 13:00 98.1 54 19 100/78 99 Room Air* 0 21 GENERAL: ALERT, ORIENTED, APPEARS-NO ACUTE DISTRESS EYES: PUPILS EQUAL/REACTIVE ENT/NECK: NECK SUPPLE W/O MASSES RESPIRATORY: LUNGS CLEAR-AUSC/PERCUS CARDIOVASCULAR: REGULAR RATE GASTROINTESTINAL: ABDOMEN IS SOFT HEMATOLOGY/LYMPHATIC: No CERVICAL ADENOPATHY, No SUPRACLAVICULR ADENOPATHY, No AXILLARY ADENOPATHY, No INGUINAL ADENOPATHY MUSCULOSKELETAL: No CYANOSIS-EXTREMETIES, No CLUBBING, No EDEMA SKIN/BREASTS: No MASSES, No RASH, No HIVES NEUROLOGICAL: GROSSLY INTACT PSYCHOLOGICAL: MINI MENTAL ASSMT INTACT DIAGNOSTIC STUDIES [place] [id number] [address] IMAGING REPORT Addendum PATIENT: JULIA LENTZ MR#: [id number] : 1945 SEX: M AGE: 79 LOCATION: [facility] ORDER STATUS: REG ER REPORT#: [id number] SERVICE 0850 REASON: cp ORDERING PHYSICIAN: BENY DELEON MD PROCEDURE: CXR1VW - CHEST 1VW ADDENDUM REPORT ADDENDUM: Results were shared by telephone at 11:59 am on 03-01-[address] Katelin León. /[place] EXAM: CR Chest, 1 View. CLINICAL HISTORY: Chest pain. COMPARISON: Radiograph dated July 05, 2023 Findings: AP view of the chest is submitted. Broken Mediport catheter tubing oriented cephalad likely terminating within the right internal jugular vein, clinical correlation is advised. Mild left basilar atelectasis. No pleural effusion or pneumothorax. Pacemaker leads are unchanged in positions. Heart size is stable. Pulmonary vessels and interstitial markings are within normal limits. IMPRESSION: 1. Broken Mediport catheter tubing likely terminating within the right internal jugular vein. 2. No pneumothorax or pleural effusion. /[place] DICTATED BY: BEVERLY ALLEN Jr., MD DATE: 03/01/25 1204 ELECTRONICALLY SIGNED BY: DATE: EXAM: CR Chest, 1 View. CLINICAL HISTORY: Chest pain. COMPARISON: Radiograph dated July 05, 2023 Findings: AP view of the chest is submitted. Broken Mediport catheter tubing oriented cephalad likely terminating within the right internal jugular vein, clinical correlation is advised. Mild left basilar atelectasis. No pleural effusion or pneumothorax. Pacemaker leads are unchanged in positions. Heart size is stable. Pulmonary vessels and interstitial markings are within normal limits. IMPRESSION: 1. Broken Mediport catheter tubing likely terminating within the right internal jugular vein. 2. No pneumothorax or pleural effusion. 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 Case discussed with resident on the date stated at the beginning of note. Patient was first seen and evaluated by me during this hospitalization. SCARLET GARZA Mar 01, 2025 14:23 BEKAH LEO MD Mar 03, 2025 12:04
[2025-03-01] MEDS ORDERED: CLINDAMYCIN IVPB 600MG/50ML 50 ML IV ONE ×2 (14:35→15:30)
[2025-03-01] MEDS ORDERED: BACITRACIN 1 EACH PACKET TP ONE (15:19)
--- NOTE | 2025-03-01 16:20 | NUR ---
PT ARRIVED TO THE UNIT FROM [employer]. VS: 119/62, 60 BPM, 98% SP02 ON RA. PT IS AWAKE AND ORIENTED X 4. R. SIDE OF CHEST INCISION SITES SECURED WITH DERMABOND AND STERI STRIPS, 4X4 TEGADERM DRESSING. R. FEMORAL SITE SECURED WITH 4X4 TEGADERM DRESSING. NO S/S OF DISTRESS. SHELLEY LIGHT WITHIN REACH AND BED LOCKED AND LOW.
[2025-03-01] MEDS: SACUBITRIL/VALSARTAN 1 EACH TABLET PO SCH (21:01)
--- NOTE | 2025-03-01 22:03 | CCATH ---
PROCEDURES PERFORMED: 1. Removal of a broken Port-A-Cath in the superior vena cava, right internal jugular vein and subclavian vein. 2. Placement of a new right internal jugular Port-A-Cath. 3. Removal of the old Port-A-Cath implant device from the right upper chest. PROCEDURE: This is a 79-year-old male with a broken Port-A-Cath who presents to the ER for removal of a foreign body and placement of a new Port-A-Cath and removal of the old port. After sterile prep and drape, the right groin was prepped and draped in the usual sterile technique. 1% Xylocaine was used for local anesthetic. Using a Seldinger technique, the right femoral vein was accessed and angiographic wire was placed. Using an Amplatz gooseneck with the sheath was introduced. With the SOS catheter, the broken catheter was pulled down to the inferior vena cava and right atrium. Using the Amplatz gooseneck, this was snared and removed via the right femoral vein approach. After obtaining hemostasis. NEW PROCEDURE: Placement of a right internal jugular Port-A-Cath under ultrasound and fluoroscopy guided. The right neck was prepped and draped in the usual sterile technique. Using a Micropuncture and ultrasound, the right internal jugular vein was accessed. The tunneling was performed from the right mid clavicular region into the access site in the right internal jugular vein. Tunneling was obtained and SMART Port was tunneled and placed in a pocket that was created in the right mid chest. This catheter was then advanced into the cavoatrial junction. The catheter neck site was closed with 3-0 Vicryl and the Port-A-Cath was anchored with 2-0 silk and then subcuticular closure was performed. The patient was also given 600 mg of Cleocin. Also, the pocket was flushed with 600 mg of Cleocin. Fluoroscopy guided removal of an old Port-a-Cath in the right upper mid thorax. The same sterile technique, 1% Xylocaine was used for local anesthetic. An incision was made over the old Port-A-Cath and this was bluntly dissected and removed. This was closed with 3-0 Vicryl and the skin was closed with Dermabond. Final film demonstrates the right new Port-A-Cath to be in satisfactory position. There is no foreign body seen in the right neck and chest. The patient tolerated the procedure well. TID: [id number] RECEIPT: [id number]
[2025-03-02] VITALS (8 sets, daily range): BP systolic 111–138; BP diastolic 65–80; PULSE 55–63; RESP 16–18; TEMP 97.9–98.5; O2SAT 96–98
[2025-03-02] MEDS ORDERED: FAMO40TA7 PO (00:26)
[2025-03-02] MEDS ORDERED: IBUP-1492 PO (00:26)
[2025-03-02] MEDS ORDERED: DONE5TAB33 PO (00:26)
[2025-03-02] MEDS ORDERED: METR-172 PO (00:26)
[2025-03-02] MEDS ORDERED: SACU1TAB PO (00:26)
[2025-03-02] MEDS ORDERED: DOXY100C5 PO (00:26)
[2025-03-02] MEDS ORDERED: LEVE500T19 PO (00:26)
[2025-03-02 05:21] LABS: IMMATURE GRANULOCYTE ABSOLUTE 0.01 K/uL (0-1); NUCLEATED RED BLOOD CELLS 0.0 % (0.0-0.19); PLATELET COUNT (AUTO) 170 K/uL (130-400); RED BLOOD CELL COUNT(AUTO) 4.84 MIL/uL (4.50-6.20); RED CELL DISTRIBUTION WIDTH 13.1 % (11.0-15.5); WHITE BLOOD COUNT (AUTO) 6.0 K/uL (4.8-10.8)
[2025-03-02 05:36] LABS: CREATININE 1.0 mg/dL (0.5-1.3); GLOMERULAR FILTR. RATE CALC 77.0 mL/min (>90); GLUCOSE,RANDOM 98.0 mg/dL (70-105); SODIUM SERUM 142.0 mmol/L (136-145); UREA NITROGEN, BLOOD 20.0 mg/dL (7-18)
--- NOTE | 2025-03-02 10:01 | NUR ---
DCP:HOME Pt currently lives with his in their home. Pt does not have any DME, home health, or provider services. Pt states that he is able to complete ADLs independently. PCP is Dr. Viktor Barone and uses [facility] for any RX needs. At [place] pt will want to go home and family can assist with transportation. Addendum: 03/02/25 at 1006 by BRIJESH ROSE SS Amended: Links added.
--- NOTE | 2025-03-02 10:13 | CONS ---
CONSULTATION NOTE Date of Service: Mar 02, 2025 Reason for Consultation: Evaluation of headaches Requesting Physician: Hospitalist HISTORY OF PRESENT ILLNESS: Mr. Cook is a 79-year-old male with a history of prostate cancer with metastasis, hypertension, and epilepsy presenting with a recent episode of severe headache and hand swelling following complications with his immunotherapy treatment. The patient reports that about 10 days ago, during his immunotherapy treatment, he experienced a complication with his port. He felt something "break" in the catheter area, and the nurse administered the treatment intravenously instead. Subsequently, the patient developed swelling in his right hand, which he describes as being unable to close due to the swelling. This prompted a visit to [facility] in [place] three days ago, where he underwent a head CT scan that was reported as normal. Mr. Cook then developed a severe headache on Friday (4 days ago), which he describes as feeling like a "punch" on the right side of his head, coinciding with the side of his port. He rates the initial pain as 10/10 in severity. The headache was accompanied by photophobia and mild nausea, though he denies vomiting. The patient sought medical attention yesterday due to this headache. Today, he reports significant improvement, rating his current headache as 3/10 in severity, describing it as "almost nothing." Regarding his epilepsy, Mr. Cook reports his last seizure occurred about a year and a half ago, which was his first seizure. He is currently taking Keppra twice daily for seizure control, though he is unsure of the dosage. He denies any known brain tumors, stating that his X-rays have been clear. Medical History - Migraine (recent episode) - Prostate cancer with metastasis - Hypertension - Epilepsy - Convulsion approximately 1.5 years ago Surgical History - Port-a-cath placement for immunotherapy Medications and Supplements - Keppra one tablet every 12 hours for epilepsy - Last seizure was over a year and a half ago - Tylenol for current headache REVIEW OF SYSTEMS CONSTITUTIONAL: Denies fever, chills, or fatigue. HEAD/FACE: No signs of trauma. EENT: Denies eye pain, blurred vision, double vision, or light sensitivity. RESPIRATORY: Denies shortness of breath, cough, wheezing CARDIOVASCULAR: Denies chest pain, palpitation, syncope GASTROINTESTINAL/ABDOMINAL: Denies abdominal pain, constipation, diarrhea, nausea or vomiting GENITOURINARY: Denies dysuria or hematuria. MUSCULOSKELETAL: Denies joint pain, tenderness, or trauma. INTEGUMENTARY: Denies rash or itchiness NEUROLOGICAL/PSYCH: Denies anxiety, depression, heat or cold intolerance. PAST MEDICAL HISTORY: As above PAST SURGICAL HISTORY: Or cath placement PAST SOCIAL HISTORY: No current tobacco alcohol recreational drug abuse FAMILY HISTORY: No family history of stroke or seizures Coded Allergies: Penicillins (Unverified Allergy, Unknown, 09/07/21) PHYSICAL EXAM EYES: Anicteric. Pupils equal and reactive. HENT: No oral thrush seen, moist Oral mucosa NECK: Supple, no JVD or thyromegaly. LUNGS: Good air entry. No rales, no rhonchi. CARDIOVASCULAR: S1, S2 regular. No murmur heard. ABDOMEN: Soft, non tender, bowel sounds present, no organomegaly CENTRAL NERVOUS SYSTEM: Awake, alert, oriented x 3. No focal deficits. SKIN: No rashes, no swelling. LYMPHATICS: No peripheral lymphadenopathy MUSCULOSKELETAL: No joint swelling, erythema or tenderness. EXTREMITIES: No cyanosis or clubbing BACK: No deformity, no pressure ulcer. GENITOURINARY: No dysuria or hematuria Vital Sign (Last 24 Hours) 03/01/25 03/02/25 03/02/25 20:00 06:41 08:00 Temp 97.9 Pulse 60 Resp 16 B/P (MAP) 113/79 Pulse Ox 98 O2 Delivery Room Air O2 Flow Rate 0 FiO2 21 Intake & Output (last 24hrs) 03/01/25 03/01/25 03/02/25 15:00 23:00 07:00 Intake Total 360 ml Balance 360 ml LABS: Laboratory: Test 03/02/25 05:14 03/01/25 10:11 03/01/25 09:09 Range/Units White Blood Count 6.0 4.8-10.8 K/uL Red Blood Count 4.84 4.50-6.20 MIL/uL Hemoglobin 15.3 14.0-18.0 g/dL Hematocrit 46.4 42-54 % Mean Corpuscular Volume 95.9 79-99 fL Mean Corpuscular Hemoglobin 31.6 27.0-33.0 pg Mean Corpuscular Hemoglobin Concent 33.0 32.0-36.0 g/dL Red Cell Distribution Width 13.1 11.0-15.5 % Platelet Count 170 130-400 K/uL Mean Platelet Volume 8.6 7.5-10.5 fL Immature Granulocyte % (Auto) 0.2 0-1 % Neutrophils (%) (Auto) 68.5 40.0-77.0 % Lymphocytes (%) (Auto) 19.0 L 21.0-51.0 % Monocytes (%) (Auto) 9.8 3.0-13.0 % Eosinophils (%) (Auto) 2.0 0.0-8.0 % Basophils (%) (Auto) 0.5 0.0-5.0 % Neutrophils # (Auto) 4.1 1.8-7.7 K/uL Lymphocytes # (Auto) 1.1 1.0-4.8 K/uL Monocytes # (Auto) 0.6 0.1-1.0 K/uL Eosinophils # (Auto) 0.12 0.00-0.70 K/uL Basophils # (Auto) 0.03 0.00-0.20 K/uL Absolute Immature Granulocyte (auto 0.01 0-1 K/uL Nucleated Red Blood Cells 0.0 0.0-0.19 % Sodium Level 142 136-145 mmol/L Potassium Level 5.0 3.5-5.1 mmol/L Chloride Level 109 101-111 mmol/L Carbon Dioxide Level 27 21-32 mmol/L Blood Urea Nitrogen 20 H 7-18 mg/dL Creatinine 1.0 0.5-1.3 mg/dL Glomerular Filtration Rate Calc 77 >90 mL/min Random Glucose 98 70-105 mg/dL Total Calcium 8.4 L 8.5-10.1 mg/dL Magnesium Level 1.80 1.80-2.40 mg/dL Urine Color LIGHT-YELLOW YELLOW Urine Appearance CLEAR CLEAR Urine pH 6.0 5.0-8.0 Urine Specific [place] 1.020 1.001-1.031 Urine Protein NEGATIVE NEGATIVE mg/dL Urine Glucose (UA) NEGATIVE NEGATIVE mg/dL Urine Ketones NEGATIVE NEGATIVE mg/dL Urine Occult Blood NEGATIVE NEGATIVE Urine Nitrate NEGATIVE NEGATIVE Urine Bilirubin NEGATIVE NEGATIVE mg/dL Urine Urobilinogen 0.2 0.2-1.0 mg/dL Urine Leukocyte Esterase NEGATIVE NEGATIVE Pancho/uL Erythrocyte Sedimentation Rate 24 H 0-20 MM/HR Prothrombin Time 10.7 9.6-11.6 SEC Prothromb Time International Ratio 1.01 0.85-1.15 Activated Partial Thromboplast Time 26.1 L 26.3-35.5 SEC Total Bilirubin 0.5 0.2-1.0 mg/dL Direct Bilirubin 0.2 0.0-0.3 mg/dL Aspartate Amino Transf (AST/SGOT) 15 10-37 U/L Alanine Aminotransferase (ALT/SGPT) 17 12-78 U/L Alkaline Phosphatase 75 50-136 U/L Lactate Dehydrogenase 154 81-234 U/L Total Creatine Kinase 20 L 21-232 U/L Troponin I High Sensitivity 7 4-75 ng/L C-Reactive Protein, Quantitative 7.50 H 0.5-3.0 mg/L B-Type Natriuretic Peptide 125 H 0-100 pg/mL Total Protein 6.6 6.0-8.3 g/dL Albumin 3.3 L 3.5-5.0 g/dL Procalcitonin < 0.05 L 0.05-0.5 ng/mL Thyroid Stimulating Hormone (TSH) 0.68 0.36-3.74 uIU/mL DIAGNOSTICS / RADIOLOGY: CT scan of the head without contrast: No major abnormalities MRI of the brain with and without contrast: Pending (unknown pacemaker compatibility) ASSESSMENT / PLAN: Mr. Cook is a 79-year-old male with a history of prostate cancer with metastasis on immunotherapy, hypertension, and epilepsy presenting with right- sided headache since Friday following a broken catheter port incident during immunotherapy treatment. Acute migraine headache with no status migrainosus Assessment: Patient developed right-sided headache described as punch-like pain rated 10/10 starting Friday, associated with mild photophobia and mild nausea without vomiting. Headache occurred following an incident where the immunotherapy catheter port broke and chemotherapy extravasated, causing burning sensation and subsequent hand swelling. CT head performed at [facility] 3 days ago was negative for intracranial pathology. Headache has significantly improved from 10/10 to 3/10 currently. Clinical presentation and temporal relationship to chemotherapy extravasation suggests migraine likely triggered by the extravasation event. Neurological examination appears normal with no signs of infection. Plan: - Tylenol for current mild headache - Excedrin Migraine for future migraine episodes if needed Epilepsy Assessment: Patient has established epilepsy managed with Keppra. Last seizure occurred approximately 1.5 years ago when first diagnosed. Currently seizure- free on current regimen. Plan: - Continue Keppra twice daily Prostate cancer with metastasis Assessment: Patient has known prostate cancer with metastasis currently receiving immunotherapy. Recent complication with broken catheter port during treatment resulted in extravasation requiring treatment via peripheral IV access. Plan: - Continue immunotherapy via peripheral IV access following port malfunction - MRI of the brain with and without contrast if pacemaker compatible Thank you for your consultation. I will sign off. MATTHEW CAMARA MD Mar 02, 2025 10:13
[2025-03-02] MEDS: MAGNESIUM 2GM PREMIX 50ML 50 ML IV PRN (12:34)
--- NOTE | 2025-03-02 15:32 | PN ---
PROGRESS NOTE Date of Service: Mar 02, 2025 Time of Service: 15:18 SUBJECTIVE: 79-year-old male with underlying history of metastatic prostate cancer currently on outpatient immunotherapy, hypertension, history of pacemaker placement, history of seizure maintained on outpatient treatment with Keppra who presented to the ER for further evaluation of right shoulder and arm pain and nonresolving headache. Patient states that symptoms have been ongoing since Friday, four days ago and reports that his headache is 10/10 in severity. Headache quality is pulsating in mildly worsened with lights. Denies any neck stiffness. He was recently seen in [facility] and was discharged from the hospital on conservative therapy. He has been having right shoulder and right arm pain and also reports having mild pain around the port area. He has noticed some mild weakness to the right upper extremity. He is currently followed by Dr. Leo as outpatient with Oncology. Currently receiving immunotherapy as outpatient with last dose being given15 days ago. He was having issues with access of the port as outpatient and port could not be used on his last session of immunotherapy. Patient denies any falls or syncopal episode. He is followed by Dr. Aponte as outpatient for further management of his underlying cardiac comorbidities. He reports having history of pacemaker placement due to bradycardia. Denies any abdominal pain, vomiting and reports having bowel movement. Chest x-ray showed findings of broken MediPort catheter tubing likely terminating within the right internal jugular vein. CT of the head without contrast showed stable hypodense area with gliosis in the right occipital lobe suggestive of prior old CVA. No acute intracranial bleeding was noted. 03/02 - Patient seen at bedside. No overnight acute events. Patient underwent a removal and replacement of MediPort per Interventional Radiology. Patient tolerated the procedure well. Patient headache has significantly improved. Per Neurology, patient has acute migraine and should continue treatment with Tylenol and Excedrin migraine. Remarkable labs: WBC 6, Hgb 15.3, Hct 46.4, platelets 170K. Electrolytes within normal limits. Per hospital team, patient pending CT of upper extremity to rule out any pathology, pending results, patient may be discharged later today or tomorrow morning. REVIEW OF SYSTEMS CONSTITUTIONAL: Denies fever, chills, or fatigue. HEAD/FACE: No signs of trauma. EENT: Denies eye pain, blurred vision, double vision, or light sensitivity. RESPIRATORY: Denies shortness of breath, cough, wheezing CARDIOVASCULAR: Denies chest pain, palpitation, syncope GASTROINTESTINAL/ABDOMINAL: Denies abdominal pain, constipation, diarrhea, nausea or vomiting GENITOURINARY: Denies dysuria or hematuria. MUSCULOSKELETAL: Denies joint pain, tenderness, or trauma. INTEGUMENTARY: Denies rash or itchiness NEUROLOGICAL/PSYCH: Denies anxiety, depression, heat or cold intolerance. PHYSICAL EXAM EYES: Anicteric. Pupils equal and reactive. HENT: No oral thrush seen, moist Oral mucosa NECK: Supple, no JVD or thyromegaly. LUNGS: Good air entry. No rales, no rhonchi. CARDIOVASCULAR: S1, S2 regular. No murmur heard. ABDOMEN: Soft, non tender, bowel sounds present, no organomegaly CENTRAL NERVOUS SYSTEM: Awake, alert, oriented x 3. No focal deficits. SKIN: No rashes, no swelling. LYMPHATICS: No peripheral lymphadenopathy MUSCULOSKELETAL: No joint swelling, erythema or tenderness. EXTREMITIES: No cyanosis or clubbing BACK: No deformity, no pressure ulcer. Vital Signs (last 8hr) Date Time Temp Pulse Resp B/P (MAP) Pulse Ox O2 Delivery O2 Flow Rate FiO2 03/02/25 12:00 98.2 60 16 111/65 95 Room Air 03/02/25 08:00 97.9 60 16 113/79 98 Room Air LABS: Laboratory: Test 03/02/25 05:14 03/01/25 10:11 03/01/25 09:09 Range/Units White Blood Count 6.0 4.8-10.8 K/uL Red Blood Count 4.84 4.50-6.20 MIL/uL Hemoglobin 15.3 14.0-18.0 g/dL Hematocrit 46.4 42-54 % Mean Corpuscular Volume 95.9 79-99 fL Mean Corpuscular Hemoglobin 31.6 27.0-33.0 pg Mean Corpuscular Hemoglobin Concent 33.0 32.0-36.0 g/dL Red Cell Distribution Width 13.1 11.0-15.5 % Platelet Count 170 130-400 K/uL Mean Platelet Volume 8.6 7.5-10.5 fL Immature Granulocyte % (Auto) 0.2 0-1 % Neutrophils (%) (Auto) 68.5 40.0-77.0 % Lymphocytes (%) (Auto) 19.0 L 21.0-51.0 % Monocytes (%) (Auto) 9.8 3.0-13.0 % Eosinophils (%) (Auto) 2.0 0.0-8.0 % Basophils (%) (Auto) 0.5 0.0-5.0 % Neutrophils # (Auto) 4.1 1.8-7.7 K/uL Lymphocytes # (Auto) 1.1 1.0-4.8 K/uL Monocytes # (Auto) 0.6 0.1-1.0 K/uL Eosinophils # (Auto) 0.12 0.00-0.70 K/uL Basophils # (Auto) 0.03 0.00-0.20 K/uL Absolute Immature Granulocyte (auto 0.01 0-1 K/uL Nucleated Red Blood Cells 0.0 0.0-0.19 % Sodium Level 142 136-145 mmol/L Potassium Level 5.0 3.5-5.1 mmol/L Chloride Level 109 101-111 mmol/L Carbon Dioxide Level 27 21-32 mmol/L Blood Urea Nitrogen 20 H 7-18 mg/dL Creatinine 1.0 0.5-1.3 mg/dL Glomerular Filtration Rate Calc 77 >90 mL/min Random Glucose 98 70-105 mg/dL Total Calcium 8.4 L 8.5-10.1 mg/dL Magnesium Level 1.80 1.80-2.40 mg/dL Urine Color LIGHT-YELLOW YELLOW Urine Appearance CLEAR CLEAR Urine pH 6.0 5.0-8.0 Urine Specific [place] 1.020 1.001-1.031 Urine Protein NEGATIVE NEGATIVE mg/dL Urine Glucose (UA) NEGATIVE NEGATIVE mg/dL Urine Ketones NEGATIVE NEGATIVE mg/dL Urine Occult Blood NEGATIVE NEGATIVE Urine Nitrate NEGATIVE NEGATIVE Urine Bilirubin NEGATIVE NEGATIVE mg/dL Urine Urobilinogen 0.2 0.2-1.0 mg/dL Urine Leukocyte Esterase NEGATIVE NEGATIVE Pancho/uL Erythrocyte Sedimentation Rate 24 H 0-20 MM/HR Prothrombin Time 10.7 9.6-11.6 SEC Prothromb Time International Ratio 1.01 0.85-1.15 Activated Partial Thromboplast Time 26.1 L 26.3-35.5 SEC Total Bilirubin 0.5 0.2-1.0 mg/dL Direct Bilirubin 0.2 0.0-0.3 mg/dL Aspartate Amino Transf (AST/SGOT) 15 10-37 U/L Alanine Aminotransferase (ALT/SGPT) 17 12-78 U/L Alkaline Phosphatase 75 50-136 U/L Lactate Dehydrogenase 154 81-234 U/L Total Creatine Kinase 20 L 21-232 U/L Troponin I High Sensitivity 7 4-75 ng/L C-Reactive Protein, Quantitative 7.50 H 0.5-3.0 mg/L B-Type Natriuretic Peptide 125 H 0-100 pg/mL Total Protein 6.6 6.0-8.3 g/dL Albumin 3.3 L 3.5-5.0 g/dL Procalcitonin < 0.05 L 0.05-0.5 ng/mL Thyroid Stimulating Hormone (TSH) 0.68 0.36-3.74 uIU/mL DIAGNOSTICS / RADIOLOGY: [place] [id number] [id number] IMAGING REPORT Addendum PATIENT: JULIA LENTZ MR#: [id number] : 1945 SEX: M AGE: 79 LOCATION: [facility] ORDER 1 STATUS: REG REPORT#: [id number] SERVICE [id number] REASON: cp ORDERING PHYSICIAN: BENY DELEON MD PROCEDURE: CXR1VW - CHEST 1VW ADDENDUM REPORT ADDENDUM: Results were shared by telephone at 11:59 am on 03-01-[address] Katelin León. /[place] EXAM: CR Chest, 1 View. CLINICAL HISTORY: Chest pain. COMPARISON: Radiograph dated July 05, 2023 Findings: AP view of the chest is submitted. Broken Mediport catheter tubing oriented cephalad likely terminating within the right internal jugular vein, clinical correlation is advised. Mild left basilar atelectasis. No pleural effusion or pneumothorax. Pacemaker leads are unchanged in positions. Heart size is stable. Pulmonary vessels and interstitial markings are within normal limits. IMPRESSION: 1. Broken Mediport catheter tubing likely terminating within the right internal jugular vein. 2. No pneumothorax or pleural effusion. /[facility] DICTATED BY: BEVERLY ALLEN Jr., MD DATE: 03/01/25 1204 ELECTRONICALLY SIGNED BY: DATE: EXAM: CR Chest, 1 View. CLINICAL HISTORY: Chest pain. COMPARISON: Radiograph dated July 05, 2023 Findings: AP view of the chest is submitted. Broken Mediport catheter tubing oriented cephalad likely terminating within the right internal jugular vein, clinical correlation is advised. Mild left basilar atelectasis. No pleural effusion or pneumothorax. Pacemaker leads are unchanged in positions. Heart size is stable. Pulmonary vessels and interstitial markings are within normal limits. IMPRESSION: 1. Broken Mediport catheter tubing likely terminating within the right internal jugular vein. 2. No pneumothorax or pleural effusion. 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 Check labs in the AM I attest that I was physically present to evaluate the patient and I reviewed and discussed the case with the Resident and agree with the Resident's findings and plans of care as documented above with modifications. Case discussed with resident on the date stated at the beginning of note. Patient was first seen and evaluated by me during this hospitalization. ATTESTATION BY PHYSICIAN I have seen and examined the patient. I reviewed the documentation, medical decision making, and treatment plan as noted by the resident above. I agree with the findings and plan of care. Bekah Leo MD, PRIYA N Mar 02, 2025 15:32 BEKAH LEO MD Mar 03, 2025 13:27
--- NOTE | 2025-03-02 15:57 | PN ---
[facility] PROGRESS NOTE Date of Service: Mar 02, 2025 Time of Service: 15:29 SUBJECTIVE: 79-year-old male with underlying history of metastatic prostate cancer currently on outpatient immunotherapy, hypertension, history of pacemaker placement, history of seizure maintained on outpatient treatment with Keppra who presented to the ER for further evaluation of right shoulder and arm pain and nonresolving headache. Patient states that symptoms have been ongoing since Friday, four days ago and reports that his headache is 10/10 in severity. Headache quality is pulsating in mildly worsened with lights. Denies any neck stiffness. He was recently seen in [facility] and was discharged from the hospital on conservative therapy. He has been having right shoulder and right arm pain and also reports having mild pain around the port area. He has noticed some mild weakness to the right upper extremity. He is currently followed by Dr. Bustamante as outpatient with Oncology. Currently receiving immunotherapy as outpatient with last dose being given15 days ago. He was having issues with access of the port as outpatient and port could not be used on his last session of immunotherapy. Patient denies any falls or syncopal episode. He is followed by Dr. Aponte as outpatient for further management of his underlying cardiac comorbidities. He reports having history of pacemaker placement due to bradycardia. Denies any abdominal pain, vomiting and reports having bowel movement.Denies having fevers or chills otherwise. Denies any previous history of chronic headache. He is currently maintained on outpatient treatment with Keppra for management of seizures. Denies being told he has previous history of CVA. On presentation, patient was noted to be afebrile with T-max of 97.7 F, heart rate of 55, blood pressure of 140/74.On presentation showed WBC count of 4900, hemoglobin of 16.6, platelet count of [id number]. BMP showed sodium of 143, potassium 4.8, chloride of 108, BUN of 22, creatinine 1.1, blood glucose of 113, magnesium of 1.9, high sensitivity cardiac troponin of seven. Chest x-ray showed findings of broken MediPort catheter tubing likely terminating within the right internal jugular vein. CT of the head without contrast showed stable hypodense area with gliosis in the right occipital lobe suggestive of prior old CVA. No acute intracranial bleeding was noted. Patient will be admitted for further evaluation of nonresolving headache ongoing for the past four days. Consultation with Interventional Radiology will be requested for further removal of the broken MediPort and replacement as well. Patient's primary oncologist will be notified about patient's admission. We will see how patient progresses in the next 24-48 hours. Patient will be started on IV hydration, all home medications will be resumed including Keppra. 03/02/25 Patient was evaluated at the bedside. He was hemodynamically stable. His headache is gradually resolving. He is on Tylenol for current mild headache. Procedure was successfully done with placement of a new right internal jugular Port-A-Cath and removal of the old Port-A-Cath implant device from the right upper chest. As per Neurology: Patient has established epilepsy managed with Keppra. Continue Keppra twice daily. He still complains of pain in his left shoulder and arms. CT scan of left upper extremity has been taken and awaiting the reports. REVIEW OF SYSTEMS CONSTITUTIONAL: Denies fevers, chills, or night sweats. No unintentional weight loss reported. NEUROLOGICAL: Headche is gradually resolving, 08/02 today. Left arm and shoulder pain CARDIOVASCULAR: Denies any exertional angina, dyspnea on exertion, orthopnea, paroxysmal nocturnal dyspnea, palpitations. PULMONARY: Denies any shortness of breath, cough, phlegm/sputum, hemoptysis, pleuritic chest pain. GASTROINTESTINAL: Denies any type of dysphagia to either liquids or solids. Denies nausea, vomiting, pyrosis, early satiety, abdominal pain, diarrhea, constipation, or changes in stool consistency or caliber. GENITOURINARY: Denies frequency, urgency, nocturia, hematuria or incontinence. PHYSICAL EXAM GENERAL APPEARANCE: The patient is awake, alert, and oriented, in no acute cardiopulmonary distress. NEUROLOGICAL: Motor is 5/5 in bilateral upper and lower extremities proximal to distal. No sensory deficits. CHEST: Normal chest expansion. No Telemetry. LUNGS: Absence of any rales, rhonchi or any wheezing. CARDIOVASCULAR: Regular. S1 and S2 normal. No appreciable rubs, murmurs or gallops. ABDOMEN: Soft, nontender, and nondistended. There is no rebound, voluntary guarding, or rigidity. : Deferred. No [place]. EXTREMITIES: Non-edematous and not cyanotic. No clubbing. Good capillary refill. UPPER LIMB EXTREMITIES: Pain and tenderness around left shoulder and arm. Vital Signs (last 8hr) Date Time Temp Pulse Resp B/P (MAP) Pulse Ox O2 Delivery O2 Flow Rate FiO2 03/02/25 12:00 98.2 60 16 111/65 95 Room Air 03/02/25 08:00 97.9 60 16 113/79 98 Room Air LABS: Laboratory: Test 03/02/25 05:14 03/01/25 10:11 03/01/25 09:09 Range/Units White Blood Count 6.0 4.8-10.8 K/uL Red Blood Count 4.84 4.50-6.20 MIL/uL Hemoglobin 15.3 14.0-18.0 g/dL Hematocrit 46.4 42-54 % Mean Corpuscular Volume 95.9 79-99 fL Mean Corpuscular Hemoglobin 31.6 27.0-33.0 pg Mean Corpuscular Hemoglobin Concent 33.0 32.0-36.0 g/dL Red Cell Distribution Width 13.1 11.0-15.5 % Platelet Count 170 130-400 K/uL Mean Platelet Volume 8.6 7.5-10.5 fL Immature Granulocyte % (Auto) 0.2 0-1 % Neutrophils (%) (Auto) 68.5 40.0-77.0 % Lymphocytes (%) (Auto) 19.0 L 21.0-51.0 % Monocytes (%) (Auto) 9.8 3.0-13.0 % Eosinophils (%) (Auto) 2.0 0.0-8.0 % Basophils (%) (Auto) 0.5 0.0-5.0 % Neutrophils # (Auto) 4.1 1.8-7.7 K/uL Lymphocytes # (Auto) 1.1 1.0-4.8 K/uL Monocytes # (Auto) 0.6 0.1-1.0 K/uL Eosinophils # (Auto) 0.12 0.00-0.70 K/uL Basophils # (Auto) 0.03 0.00-0.20 K/uL Absolute Immature Granulocyte (auto 0.01 0-1 K/uL Nucleated Red Blood Cells 0.0 0.0-0.19 % Sodium Level 142 136-145 mmol/L Potassium Level 5.0 3.5-5.1 mmol/L Chloride Level 109 101-111 mmol/L Carbon Dioxide Level 27 21-32 mmol/L Blood Urea Nitrogen 20 H 7-18 mg/dL Creatinine 1.0 0.5-1.3 mg/dL Glomerular Filtration Rate Calc 77 >90 mL/min Random Glucose 98 70-105 mg/dL Total Calcium 8.4 L 8.5-10.1 mg/dL Magnesium Level 1.80 1.80-2.40 mg/dL Urine Color LIGHT-YELLOW YELLOW Urine Appearance CLEAR CLEAR Urine pH 6.0 5.0-8.0 Urine Specific [place] 1.020 1.001-1.031 Urine Protein NEGATIVE NEGATIVE mg/dL Urine Glucose (UA) NEGATIVE NEGATIVE mg/dL Urine Ketones NEGATIVE NEGATIVE mg/dL Urine Occult Blood NEGATIVE NEGATIVE Urine Nitrate NEGATIVE NEGATIVE Urine Bilirubin NEGATIVE NEGATIVE mg/dL Urine Urobilinogen 0.2 0.2-1.0 mg/dL Urine Leukocyte Esterase NEGATIVE NEGATIVE [place]o/uL Erythrocyte Sedimentation Rate 24 H 0-20 MM/HR Prothrombin Time 10.7 9.6-11.6 SEC Prothromb Time International Ratio 1.01 0.85-1.15 Activated Partial Thromboplast Time 26.1 L 26.3-35.5 SEC Total Bilirubin 0.5 0.2-1.0 mg/dL Direct Bilirubin 0.2 0.0-0.3 mg/dL Aspartate Amino Transf (AST/SGOT) 15 10-37 U/L Alanine Aminotransferase (ALT/SGPT) 17 12-78 U/L Alkaline Phosphatase 75 50-136 U/L Lactate Dehydrogenase 154 81-234 U/L Total Creatine Kinase 20 L 21-232 U/L Troponin I High Sensitivity 7 4-75 ng/L C-Reactive Protein, Quantitative 7.50 H 0.5-3.0 mg/L B-Type Natriuretic Peptide 125 H 0-100 pg/mL Total Protein 6.6 6.0-8.3 g/dL Albumin 3.3 L 3.5-5.0 g/dL Procalcitonin < 0.05 L 0.05-0.5 ng/mL Thyroid Stimulating Hormone (TSH) 0.68 0.36-3.74 uIU/mL Current Medications Medications (Trade) Dose Ordered Sig/Lulu Route PRN Reason Start Time Stop Time Status Last Admin Dose Admin Acetaminophen (TYLenol 325MG TAB) 650 mg Q6H PRN PO MILD PAIN (1-3) 03/01/25 12:30 03/31/25 12:29 03/02/25 00:37 650 MG Donepezil HCl (ARIcept 5MG TAB) 5 mg HS PO 03/02/25 21:00 04/01/25 20:59 Heparin Sodium (Porcine) (HEParin 5,000 UNIT VIAL) 5,000 unit Q12H SQ 03/02/25 14:00 03/02/25 13:33 DC Ipratropium [place] (AtrovENT UD) 0.5 mg Q6H PRN IH SHORTNESS OF BREATH 03/01/25 12:30 03/31/25 12:29 Levetiracetam (kepPRA 500 MG TABLET) 500 mg BID PO 03/01/25 21:00 03/31/25 20:59 03/02/25 09:34 500 MG Magnesium Sulfate 50 ml @ 0 mls/hr PROTOCOL PRN IV Hypomagnesemia 03/02/25 11:30 04/01/25 11:29 03/02/25 12:34 25 MLS/HR Metoprolol Succinate (TopROL XL) 100 mg DAILY PO 03/02/25 09:00 03/02/25 08:34 DC Ondansetron HCl (zoFRAN 4MG INJ) 4 mg Q6H PRN IVP NAUSEA/VOMITING 03/01/25 12:30 03/31/25 12:29 Pantoprazole Sodium (PROTonix 40MG INJ) 40 mg Q24H IVP 03/01/25 13:00 03/31/25 12:59 03/02/25 12:34 40 MG Sacubitril/ Valsartan (Entresto 24 Mg-26 Mg Tablet) 1 each BID PO 03/01/25 21:00 03/31/25 20:59 03/02/25 09:34 1 EACH Sodium Chloride 1,000 ml @ 50 mls/hr Q20H IV 03/01/25 12:30 03/02/25 11:37 DC 03/01/25 13:10 50 MLS/HR Tamsulosin HCl (FloMAX) 0.4 mg DAILY PO 03/02/25 09:00 04/01/25 08:59 03/02/25 09:34 0.4 MG DIAGNOSTICS / RADIOLOGY: [place] [address] [place] [id number] IMAGING REPORT Signed PATIENT: JULIA LENTZ MR#: [id number] : 1945 SEX: M AGE: 79 LOCATION: [facility] ORDER STATUS: REG ER REPORT#: [id number] SERVICE REASON: right side weakness ORDERING PHYSICIAN: BENY DELEON MD PROCEDURE: HEAD WO - CT HEAD/BRAIN W/O CONTRAST EXAM: Non-contrast CT examination of the Brain CLINICAL HISTORY: Trauma. TECHNIQUE: Thin collimated axial CT images of the brain were obtained, with sagittal and coronal reformatted images also submitted. CT scan done according to ALARA (As Low as Reasonably Achievable). CONTRAST USED: None. COMPARISON: 09/07/21. FINDINGS: No acute intracranial abnormality is present. No acute cortical infarction, hemorrhage, mass, or mass effect. Stable hypodense area with gliosis in the right occipital lobe, suggesting sequelae of prior insult. No hydrocephalus or abnormal extra-axial fluid collections. The posterior fossa is unremarkable. The skull base and calvarium are intact. The included portions of the paranasal sinuses and mastoid air cells are clear. IMPRESSION: No acute intracranial abnormality is present. Stable hypodense area with gliosis in the right occipital lobe, suggesting sequelae of prior insult. There is an interval absence of the subcortical hypodensity in the left high frontal lobe. No new finding. Clinical correlation and further evaluation with MRI of the brain are recommended. /[place] DICTATED BY: BEVERLY ALLEN Jr., MD DATE: 03/01/251158 ELECTRONICALLY SIGNED BY: BEVERLY ALLEN Jr., MD DATE: 03/01/251158 [place] [address] [address] IMAGING REPORT Signed PATIENT: JULIA LENTZ MR#: [id number] : 1945 SEX: M AGE: 79 [facility] STATUS: ADM IN REPORT#: [id number] SERVICE 1250 REASON: right shoudler pain, r/o any fractures or dislocation ORDERING PHYSICIAN: CALLI FAITH MD PROCEDURE: SHOL 2V RT - SHOULDER COMP 2+VWS RT EXAM: CR right Shoulder, 2 View. CLINICAL HISTORY: right shoudler pain, r/o any fractures or dislocation COMPARISON: None provided. FINDINGS: BONES: No acute fracture or aggressive appearing osseous lesion. JOINTS: No dislocation. The joint spaces are normal. SOFT TISSUES: The soft tissues are unremarkable. IMPRESSION: No acute abnormality evident on examination of the right shoulder. No acute fracture or dislocation. 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 * Procedure was successfully done with placement of a new right internal jugular Port-A-Cath and removal of the old Port-A-Cath implant device from the right upper chest. 03/02/25 * Patient is Stable after the procedure Metastatic prostate cancer on outpatient immunotherapy * Patient has known prostate cancer with metastasis currently receiving immunot herapy. Recent complication with broken catheter port during treatment resulted in extravasation requiring treatment via peripheral IV access. * Continue immunotherapy via peripheral IV access following port malfunction * Patient's case was discussed with primary oncologist Dr. Bustamante, we will follow up recommendations Headache * Patient presented with non resolving headache for 4 days * His headache has gradually resolved, currently its 08/02. 03/02/25 * Toradol IV for management of headache * CT head showed Stable hypodense area with gliosis in the right occipital lobe, suggesting sequelae of prior insult. * MRI of the brain with and without contrast if pacemaker compatible Seizure disorder * Patient's case was discussed with Neurology * Patient has established epilepsy managed with Keppra. Last seizure occurred approximately 1.5 years ago when first diagnosed. Currently seizure-free on current regimen. * Continue Keppra twice daily * Patient will be admitted to medical-surgical floor under telemetry monitoring Left shoulder/arm pain * He still complains of pain in his left shoulder and arms. * CT scan of left upper extremity has been taken and awaiting the reports. Supportive measures * Continue monitoring daily labs: CBC and BMP * DVT and GI prophylaxis as recommended * Closely follow up the patient ATTESTATION BY PHYSICIAN I have seen and examined the patient. I reviewed the documentation, medical decision making, and treatment plan as noted by the resident provider above. I agree with the findings and plan of care. JAKE SNOWDEN MD JOANNA ODONNELL MD Mar 02, 2025 15:57
[2025-03-03] VITALS: BP 159/90; PULSE 90; RESP 18; TEMP 98.2
[2025-03-03 04:18] VITALS: BP 125/84; PULSE 55; RESP 17; TEMP 98.5
[2025-03-03 04:44] LABS: NUCLEATED RED BLOOD CELLS 0.0 % (0.0-0.19); PLATELET COUNT (AUTO) 180.0 K/uL (130-400); RED BLOOD CELL COUNT(AUTO) 4.83 MIL/uL (4.50-6.20); RED CELL DISTRIBUTION WIDTH 13.0 % (11.0-15.5); WHITE BLOOD COUNT (AUTO) 5.4 K/uL (4.8-10.8)
[2025-03-03 04:59] LABS: CREATININE 0.9 mg/dL (0.5-1.3); GLOMERULAR FILTR. RATE CALC 87.0 mL/min (>90); GLUCOSE,RANDOM 100.0 mg/dL (70-105); SODIUM SERUM 142.0 mmol/L (136-145); UREA NITROGEN, BLOOD 15.0 mg/dL (7-18)
[2025-03-03 07:00] VITALS: PULSE 61; RESP 18; O2SAT 96
[2025-03-03 08:00] VITALS: BP 113/79; PULSE 65; RESP 15; TEMP 98.3
[2025-03-03 08:41] VITALS: O2SAT 98
[2025-03-03 09:14] LABS: SARS-CoV-2, RNA, NAAT NEGATIVE SARS CoV-2 (NEGATIVE)
[2025-03-03 09:15] LABS: INFLUENZA TYPE A Negative For Type A (NEGATIVE); INFLUENZA TYPE B Negative For Type B (NEGATIVE)
--- NOTE | 2025-03-03 10:19 | HMCIMG ---
EXAM: CT Left Shoulder Without IV contrast. CLINICAL HISTORY: Left shoulder pain. TECHNIQUE: Axial images were acquired through the left shoulder without intravenous contrast. Reformatted images were reviewed. COMPARISON: None provided. FINDINGS: BONES: No acute fracture or aggressive-appearing osseous lesion. JOINTS: No dislocation. The joint spaces are normal. Mild acromioclavicular joint osteoarthritis. Type III acromion is noted. Degenerative changes in the glenohumeral joint in the form of multiple osteophytes. Degenerative changes in the visualized cervical spine. SOFT TISSUES: The soft tissues are unremarkable. Cardiac pacemaker in situ. IMPRESSION: No acute osseous abnormality. Mild degenerative changes in the acromioclavicular and glenohumeral joints. Type III acromion. /[place]
--- NOTE | 2025-03-03 11:39 | DS ---
Discharge Summary Hospital Course Summary: 79-year-old male with underlying history of metastatic prostate cancer currently on outpatient immunotherapy, hypertension, history of pacemaker placement, history of seizure maintained on outpatient treatment with Keppra who presented to the ER for further evaluation of left shoulder and arm pain and nonresolving headache. Patient states that symptoms have been ongoing since Friday, four days ago and reports that his headache is 10/10 in severity. Headache quality is pulsating in mildly worsened with lights. Denies any neck stiffness. He was recently se en in [facility] and was discharged from the hospital on conservative therapy. He has been having right shoulder and right arm pain and also reports having mild pain around the port area. He has noticed some mild weakness to the right upper extremity. He is currently followed by Dr. Bustamante as outpatient with Oncology. Currently receiving immunotherapy as outpatient with last dose being given15 days ago. He was having issues with access of the port as outpatient and port could not be used on his last session of immunotherapy. Patient denies any falls or syncopal episode. He is followed by Dr. Aponte as outpatient for further management of his underlying cardiac comorbidities. He reports having history of pacemaker placement due to bradycardia. Denies any abdominal pain, vomiting and reports having bowel movement.Denies having fevers or chills otherwise. Denies any previous history of chronic headache. He is currently maintained on outpatient treatment with Keppra for management of seizures. Denies being told he has previous history of CVA. On presentation, patient was noted to be afebrile with T-max of 97.7 F, heart rate of 55, blood pressure of 140/74.On presentation showed WBC count of 4900, hemoglobin of 16.6, platelet count of 219534. BMP showed sodium of 143, potassium 4.8, chloride of 108, BUN of 22, creatinine 1.1, blood glucose of 113, magnesium of 1.9, high sensitivity cardiac troponin of seven. Chest x-ray showed findings of broken MediPort catheter tubing likely terminating within the right internal jugular vein. CT of the head without contrast showed stable hypodense area with gliosis in the right occipital lobe suggestive of prior old CVA. No acute intracranial bleeding was noted. Patient was evaluated at the bedside. He is hemodynamically stable. His headache has resolved. Continue with tylenol as needed for headache. Procedure was successfully done with placement of a new right internal jugular Port-A-Cath and removal of the old Port-A-Cath implant device from the right upper chest. As per Neurology: Patient has established epilepsy managed with Keppra. Continue Keppra twice daily. . CT scan of left upper extremity showed no acute osseous abnormality. Mild degenerative changes in acromioclavicular and glenohumeral joints. As per neurology, continue with keppra and will prescribe Excedrin for future migraine attacks. Since his headaches have resolved, we will defer MRI w/wo contrast to outpatient and PET scan if needed. Manager Publishing(s): Hematology - Dr. Bustamante IR - Dr. Negron Neurology - Dr. Arellano CONSULT REFERRING PHYSICIAN: Dr. Calli Prieto REASON FOR CONSULT: Hospitalization of oncology patient. Patient Mediport catheter broken likely terminating in right internal jugular vein. Patient is being seen by IR for removal and replacement. HISTORY HPI: 79-year-old male with underlying history of metastatic prostate cancer currently on outpatient immunotherapy, hypertension, history of pacemaker placement, history of seizure maintained on outpatient treatment with Keppra who presented to the ER for further evaluation of right shoulder and arm pain and nonresolving headache. Patient states that symptoms have been ongoing since Friday, four days ago and reports that his headache is 10/10 in severity. Headache quality is pulsating in mildly worsened with lights. Denies any neck stiffness. He was recently seen in [facility] and was discharged from the hospital on conservative therapy. He has been having right shoulder and right arm pain and also reports having mild pain around the port area. He has noticed some mild weakness to the right upper extremity. He is currently followed by Dr. Bustamante as outpatient with Oncology. Currently receiving immunotherapy as outpatient with last dose being given15 days ago. He was having issues with access of the port as outpatient and port could not be used on his last session on if imm unotherapy. Patient denies any falls or syncopal episode. He is followed by Dr. Aponte as outpatient for further management of his underlying cardiac comorbidities. He reports having history of pacemaker placement due to bradycardia. Denies any abdominal pain, vomiting and reports having bowel movement. Denies having fevers or chills otherwise. Denies any previous history of c hronic headache. He is currently maintained on outpatient treatment with Keppra for management of seizures. Denies being told he has previous history of CVA. On presentation, patient was noted to be afebrile with T-max of 97.7 F, heart rate of 55, blood pressure of 140/74. Remarkable labs on admission: WBC count of 4900, hemoglobin of 16.6, platelet count of 202747. BMP showed sodium of 143, potassium 4.8, chloride of 108, BUN of 22, creatinine 1.1, blood glucose of 113, magnesium of 1.9, high sensitivity cardiac troponin of seven. Chest x-ray showed findings of broken MediPort catheter tubing likely terminating within the right internal jugular vein. CT of the head without contrast showed stable hypodense area with gliosis in the right occipital lobe suggestive of prior old CVA. No acute intracranial bleeding was noted. Patient admitted for further evaluation of nonresolving headache ongoing for the past four days. Interventional Radiology requested for further removal of the broken MediPort and replacement. 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 Lentz is a 79-year-old male with a history of prostate cancer with me tastasis, hypertension, and epilepsy presenting with a recent episode of severe headache and hand swelling following complications with his immunotherapy treatment. The patient reports that about 10 days ago, during his immunotherapy treatment, he experienced a complication with his port. He felt something "break" in the catheter area, and the nurse administered the treatment intravenously instead. Subsequently, the patient developed swelling in his right hand, which he describes as being unable to close due to the swelling. This prompted a visit to [facility] in [place] three days ago, where he underwent a head CT scan that was reported as normal. Mr. Lentz then developed a severe headache on Friday (4 days ago), which he describes as feeling like a "punch" on the right side of his head, coinciding with the side of his port. He rates the initial pain as 10/10 in severity. The headache was accompanied by photophobia and mild nausea, though he denies vomiting. The patient sought medical attention yesterday due to this headache. Today, he reports significant improvement, rating his current headache as 3/10 in severity, describing it as "almost nothing." Regarding his epilepsy, Mr. Lentz reports his last seizure occurred about a year and a half ago, which was his first seizure. He is currently taking Keppra twice daily for seizure control, though he is unsure of the dosage. He denies any known brain tumors, stating that his X-rays have been clear. Medical History - Migraine (recent episode) - Prostate cancer with metastasis - Hypertension - Epilepsy - Convulsion approximately 1.5 years ago Surgical History - Port-a-cath placement for immunotherapy Medications and Supplements - Keppra one tablet every 12 hours for epilepsy - Last seizure was over a year and a half ago - Tylenol for current headache ASSESSMENT / PLAN: Mr. Lentz is a 79-year-old male with a history of prostate cancer with metastasis on immunotherapy, hypertension, and epilepsy presenting with right-s ided headache since Friday following a broken catheter port incident during immunotherapy treatment. Acute migraine headache with no status migrainosus Assessment: Patient developed right-sided headache described as punch-like pain rated 10/10 starting Friday, associated with mild photophobia and mild nausea without vomiting. Headache occurred following an incident where the immunotherapy catheter port broke and chemotherapy extravasated, causing burning sensation and subsequent hand swelling. CT head performed at [facility] 3 days ago was negative for intracranial pathology. Headache has significantly improved from 10/10 to 3/10 currently. Clinical presentation and temporal relationship to chemotherapy extravasation suggests migraine likely triggered by the extravasation event. Neurological examination appears normal with no signs of infection. Plan: - Tylenol for current mild headache - Excedrin Migraine for future migraine episodes if needed Epilepsy Assessment: Patient has established epilepsy managed with Keppra. Last seizure occurred approximately 1.5 years ago when first diagnosed. Currently seizure- free on current regimen. Plan: - Continue Keppra twice daily Prostate cancer with metastasis Assessment: Patient has known prostate cancer with metastasis currently receiving immunotherapy. Recent complication with broken catheter port during treatment resulted in extravasation requiring treatment via peripheral IV access. Plan: - Continue immunotherapy via peripheral IV access following port malfunction - MRI of the brain with and without contrast if pacemaker compatible Procedure(s): [facility] [address] [place] [address] [facility] [address] [place] [address] CARDIAC CATHLAB REPORT Signed PATIENT: JULIA LENTZ MR#: [id number] : 1945 SEX: M AGE: 79 LOCATION: [facility] ROOM/BED: [facility] ORDER DT: ACCESSION#: ORDER#: REPORT#: [id number] REASON: ORDERING PHYSICIAN: PROCEDURE: - PROCEDURES PERFORMED: 1. Removal of a broken Port-A-Cath in the superior vena cava, right internal jugular vein and subclavian vein. 2. Placement of a new right internal jugular Port-A-Cath. 3. Removal of the old Port-A-Cath implant device from the right upper chest. PROCEDURE: This is a 79-year-old male with a broken Port-A-Cath who presents to the ER for removal of a foreign body and placement of a new Port-A-Cath and removal of the old port. After sterile prep and drape, the right groin was prepped and draped in the usual sterile technique. 1% Xylocaine was used for local anesthetic. Using a Seldinger technique, the right femoral vein was accessed and angiographic wire was placed. Using an Amplatz gooseneck with the sheath was introduced. With the SOS catheter, the broken catheter was pulled down to the inferior vena cava and right atrium. Using the Amplatz gooseneck, this was snared and removed via the right femoral vein approach. After obtaining hemostasis. NEW PROCEDURE: Placement of a right internal jugular Port-A-Cath under ultrasound and fluoroscopy guided. The right neck was prepped and draped in the usual sterile technique. Using a Micropuncture and ultrasound, the right internal jugular vein was accessed. The tunneling was performed from the right mid clavicular region into the access site in the right internal jugular vein. Tunneling was obtained and SMART Port was tunneled and placed in a pocket that was created in the right mid chest. This catheter was then advanced into the cavoatrial junction. The catheter neck site was closed with 3-0 Vicryl and the Port-A-Cath was anchored with 2-0 silk and then subcuticular closure was performed. The patient was also given 600 mg of Cleocin. Also, the pocket was flushed with 600 mg of Cleocin. Fluoroscopy guided removal of an old Port-a-Cath in the right upper mid thorax. The same sterile technique, 1% Xylocaine was used for local anesthetic. An incision was made over the old Port-A-Cath and this was bluntly dissected and removed. This was closed with 3-0 Vicryl and the skin was closed with Dermabond. Final film demonstrates the right new Port-A-Cath to be in satisfactory position. There is no foreign body seen in the right neck and chest. The patient tolerated the procedure well. TID: [id number] RECEIPT: [id number] DICTATED BY: BRIA NEGRON MD DATE & TIME: 03/01/25 1444 ELECTRONICALLY SIGNED BY: BRIA NEGRON MD DATE & TIME: 03/02/25 1318 PATIENT: JULIA LENTZ MR#: [id number] : 1945 SEX: M AGE: 79 LOCATION: [facility] ORDER 1208 STATUS: ADM IN REPORT#: [id number] SERVICE 1207 REASON: left shoulder pain ORDERING PHYSICIAN: JANIYA THOMPSON MD PROCEDURE: UPP EXT WO - CT UPPER EXT W/O CONTRAST EXAM: CT Left Shoulder Without IV contrast. CLINICAL HISTORY: Left shoulder pain. TECHNIQUE: Axial images were acquired through the left shoulder without intravenous contrast. Reformatted images were reviewed. COMPARISON: None provided. FINDINGS: BONES: No acute fracture or aggressive-appearing osseous lesion. JOINTS: No dislocation. The joint spaces are normal. Mild acromioclavicular joint osteoarthritis. Type III acromion is noted. Degenerative changes in the glenohumeral joint in the form of multiple osteophytes. Degenerative changes in the visualized cervical spine. SOFT TISSUES: The soft tissues are unremarkable. Cardiac pacemaker in situ. IMPRESSION: No acute osseous abnormality. Mild degenerative changes in the acromioclavicular and glenohumeral joints. Type III acromion. /[place] DICTATED BY: RENETTA KINGSLEY MD DATE: 03/03/251117 ELECTRONICALLY SIGNED BY: RENETTA KINGSLEY MD DATE: 03/03/251117 PATIENT: JULIA LENTZ MR#: [id number] : 1945 SEX: M AGE: 79 [facility] ORDER 49 STATUS: ADM IN REPORT#: [id number] SERVICE 49 REASON: right shoudler pain, r/o any fractures or dislocation ORDERING PHYSICIAN: CALLI PRIETO MD PROCEDURE: SHOL 2V RT - SHOULDER COMP 2+VWS RT EXAM: CR right Shoulder, 2 View. CLINICAL HISTORY: right shoudler pain, r/o any fractures or dislocation COMPARISON: None provided. FINDINGS: BONES: No acute fracture or aggressive appearing osseous lesion. JOINTS: No dislocation. The joint spaces are normal. SOFT TISSUES: The soft tissues are unremarkable. IMPRESSION: No acute abnormality evident on examination of the right shoulder. No acute fracture or dislocation. /[place] DICTATED BY: DEB ROLAND MD DATE: 03/01/251507 ELECTRONICALLY SIGNED BY: DEB ROLAND MD DATE: 03/01/251507 PATIENT: JULIA LENTZ MR#: [id number] : 1945 SEX: M AGE: 79 LOCATION: ED ORDER 5 STATUS: REG ER REPORT#: [id number] SERVICE 4 REASON: right side weakness ORDERING PHYSICIAN: BENY DELEON MD PROCEDURE: HEAD WO - CT HEAD/BRAIN W/O CONTRAST EXAM: Non-contrast CT examination of the Brain CLINICAL HISTORY: Trauma. TECHNIQUE: Thin collimated axial CT images of the brain were obtained, with sagittal and coronal reformatted images also submitted. CT scan done according to ALARA (As Low as Reasonably Achievable). CONTRAST USED: None. COMPARISON: 09/07/21. FINDINGS: No acute intracranial abnormality is present. No acute cortical infarction, hemorrhage, mass, or mass effect. Stable hypodense area with gliosis in the right occipital lobe, suggesting sequelae of prior insult. No hydrocephalus or abnormal extra-axial fluid collections. The posterior fossa is unremarkable. The skull base and calvarium are intact. The included portions of the paranasal sinuses and mastoid air cells are clear. IMPRESSION: No acute intracranial abnormality is present. Stable hypodense area with gliosis in the right occipital lobe, suggesting sequelae of prior insult. There is an interval absence of the subcortical hypodensity in the left high frontal lobe. No new finding. Clinical correlation and further evaluation with MRI of the brain are recommended. /[place] DICTATED BY: BEVERLY ALLEN Jr., MD DATE: 03/01/251158 ELECTRONICALLY SIGNED BY: BEVERLY ALLEN Jr., MD DATE: 03/01/251158 PATIENT: JULIA LENTZ MR#: [id number] : 1945 SEX: M AGE: 79 LOCATION: [facility] ORDER STATUS: [facility] REPORT#: [id number] SERVICE 0850 REASON: cp ORDERING PHYSICIAN: BENY DELEON MD PROCEDURE: CXR1VW - CHEST 1VW ADDENDUM REPORT ADDENDUM: Results were shared by telephone at 11:59 am on 03-01-[address] Katelin León. /[place] EXAM: CR Chest, 1 View. CLINICAL HISTORY: Chest pain. COMPARISON: Radiograph dated July 05, 2023 Findings: AP view of the chest is submitted. Broken Mediport catheter tubing oriented cephalad likely terminating within the right internal jugular vein, clinical correlation is advised. Mild left basilar atelectasis. No pleural effusion or pneumothorax. Pacemaker leads are unchanged in positions. Heart size is stable. Pulmonary vessels and interstitial markings are within normal limits. IMPRESSION: 1. Broken Mediport catheter tubing likely terminating within the right internal jugular vein. 2. No pneumothorax or pleural effusion. /[place] DICTATED BY: BEVERLY ALLEN Jr., MD DATE: 03/01/25 1204 ELECTRONICALLY SIGNED BY: DATE: EXAM: CR Chest, 1 View. CLINICAL HISTORY: Chest pain. COMPARISON: Radiograph dated July 05, 2023 Findings: AP view of the chest is submitted. Broken Mediport catheter tubing oriented cephalad likely terminating within the right internal jugular vein, clinical correlation is advised. Mild left basilar atelectasis. No pleural effusion or pneumothorax. Pacemaker leads are unchanged in positions. Heart size is stable. Pulmonary vessels and interstitial markings are within normal limits. IMPRESSION: 1. Broken Mediport catheter tubing likely terminating within the right internal jugular vein. 2. No pneumothorax or pleural effusion. 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 Bustamante, IR - Dr. Negron, Neurology - Dr. Arellano FOLLOW UP APPOINTMENT(S) : f/u with PCP in one 2-3 days, f/u with neurology in 2 weeks for outpatient MRI PROCEDURES: none IMAGING (S) : report attached to summary MICROBIOLOGY : none ACTIVITY : ad rachael HOME MEDICATIONS : Continued Home Medications: Active Scripts Aspirin/Acetaminophen/Caffeine (Excedrin Migraine Caplet) 250 Mg-250 Mg-65 Mg Tablet, 1 EACH PO BIDPC for 15 Days, #30 TAB Prov:JANIYA THOMPSON MD 03/03/25 Reported Medications Donepezil HCl (Donepezil HCl) 5 Mg Tablet, 1 TAB PO HS 03/02/25 Sacubitril/Valsartan (Entresto 24 mg-26 mg Tablet) 24 Mg-26 Mg Tablet, 1 TAB PO BID 03/02/25 Famotidine (Famotidine) 40 Mg Tablet, 1 TAB PO DAILY 03/02/25 Ibuprofen (Ibuprofen) 600 Mg Tablet, 1 TAB PO TID PRN for PAIN 03/02/25 Doxycycline Hyclate (Doxycycline Hyclate) 100 Mg Capsule, 1 CAP PO BID 03/02/25 Metronidazole (Metronidazole) 500 Mg Tablet, 1 TAB PO TID 03/02/25 Levetiracetam (Levetiracetam) 500 Mg Tablet, 1 TAB PO BID 03/02/25 Metoprolol Succinate (Metoprolol Succinate) 100 Mg Tab.er.24h, 100 MG PO DAILY, TAB 07/05/23 Megestrol Acetate (Megace 40 mg Tabs) 40 Mg Tablet, 40 MG PO BID, TAB 07/05/23 Tamsulosin HCl (Flomax) 0.4 Mg Cap.er.24h, 0.4 MG PO DAILY, CAPSULE.DR 09/07/21 Hydrocodone/Acetaminophen (Hydrocodon-Acetaminophen 5-325) 1 Each Tablet, 1 EACH PO Q4HPRN PRN for PAIN 7-10, TAB 09/07/21 Discontinued Reported Medications Famotidine (Famotidine) 20 Mg Tablet, 20 MG PO BID, TAB 07/05/23 Discontinued Scripts Levetiracetam (Keppra) 500 Mg Tablet, 500 MG PO BID for 15 Days, #30 TAB 0 Refills Prov:JYOTI TOWNSEND HISTOPATH TECH 09/08/21 Continued Medications: Donepezil HCl (Donepezil HCl) 5 Mg Tablet 1 TAB PO HS Doxycycline Hyclate (Doxycycline Hyclate) 100 Mg Capsule 1 CAP PO BID Famotidine (Famotidine) 40 Mg Tablet 1 TAB PO DAILY Hydrocodone/Acetaminophen (Hydrocodon-Acetaminophen 5-325) 1 Each Tablet 1 EACH PO Q4HPRN PRN for PAIN 7-10, TAB Ibuprofen (Ibuprofen) 600 Mg Tablet 1 TAB PO TID PRN for PAIN Levetiracetam (Levetiracetam) 500 Mg Tablet 1 TAB PO BID Megestrol Acetate (Megace 40 mg Tabs) 40 Mg Tablet 40 MG PO BID, TAB Metoprolol Succinate (Metoprolol Succinate) 100 Mg Tab.er.24h 100 MG PO DAILY, TAB Metronidazole (Metronidazole) 500 Mg Tablet 1 TAB PO TID Sacubitril/Valsartan (Entresto 24 mg-26 mg Tablet) 24 Mg-26 Mg Tablet 1 TAB PO BID Tamsulosin HCl (Flomax) 0.4 Mg Cap.er.24h 0.4 MG PO DAILY, CAPSULE.DR Discontinued Medications: Famotidine (Famotidine) 20 Mg Tablet 20 MG PO BID, TAB Levetiracetam (Keppra) 500 Mg Tablet 500 MG PO BID for 15 Days, #30 TAB 0 Refills Time spent arranging discharge: 1-30 minutes ATTESTATION BY PHYSICIAN I have seen and examined the patient. I reviewed the documentation, medical decision making, and treatment plan as noted by the resident above. I agree with the findings and plan of care. JAKE SNOWDEN MD, NIHITHA MD Mar 03, 2025 11:38
[2025-03-03 12:00] VITALS: BP 109/73; PULSE 62; RESP 16; TEMP 98.8
--- NOTE | 2025-03-03 12:15 | NUR ---
DISCHARGE DC'D IV. NO COMPLICATIONS. PT AWARE TO FOLLOW UP WITH PCP. APPOINTMENT MADE. PHONE NUMBER PROVIDED. PT AWARE TO FOLLOW UP WITH DR. LEO WITHIN 2 WEEK.S PHONE NUMBER PROVIDED. DAUGHTER AT BEDSIDE. ANSWERED ALL QUESTIONS AT THIS TIME. DRESSING TO RT CHEST AND RT GROIN DRY AND INTACT. PT DENIES PAIN.
[2025-03-03] MEDS ORDERED: ASPI1TAB7 PO (12:19)
--- NOTE | 2025-03-03 12:24 | NUR ---
TEACHING PORT A CATH TEACHING PACKET HANDED TO PT.
--- NOTE | 2025-03-03 13:28 | PN ---
79-year-old male with underlying history of metastatic prostate cancer currently on outpatient immunotherapy, hypertension, history of pacemaker placement, history of seizure maintained on outpatient treatment with Keppra who presented to the ER for further evaluation of right shoulder and arm pain and nonresolving headache. Patient states that symptoms have been ongoing since Friday, four days ago and reports that his headache is 10/10 in severity. Headache quality is pulsating in mildly worsened with lights. Denies any neck stiffness. He was recently seen in [facility] and was discharged from the hospital on conservative therapy. He has been having right shoulder and right arm pain and also reports having mild pain around the port area. He has noticed some mild weakness to the right upper extremity. He is currently followed by Dr. Leo as outpatient with Oncology. Currently receiving immunotherapy as outpatient with last dose being given15 days ago. He was having issues with access of the port as outpatient and port could not be used on his last session of immunotherapy. Patient denies any falls or syncopal episode. He is followed by Dr. Aponte as outpatient for further management of his underlying cardiac comorbidities. He reports having history of pacemaker placement due to bradycardia. Denies any abdominal pain, vomiting and reports having bowel movement. Chest x-ray showed findings of broken MediPort catheter tubing likely terminating within the right internal jugular vein. CT of the head without contrast showed stable hypodense area with gliosis in the right occipital lobe suggestive of prior old CVA. No acute intracranial bleeding was noted. 03/02 - Patient seen at bedside. No overnight acute events. Patient underwent a removal and replacement of MediPort per Interventional Radiology. Patient tolerated the procedure well. Patient headache has significantly improved. Per Neurology, patient has acute migraine and should continue treatment with Tylenol and Excedrin migraine. Remarkable labs: WBC 6, Hgb 15.3, Hct 46.4, platelets 170K. Electrolytes within normal limits. Per hospital team, patient pending CT of upper extremity to rule out any pathology, pending results, patient may be discharged later today or tomorrow morning. REVIEW OF SYSTEMS CONSTITUTIONAL: Denies fever, chills, or fatigue. HEAD/FACE: No signs of trauma. EENT: Denies eye pain, blurred vision, double vision, or light sensitivity. RESPIRATORY: Denies shortness of breath, cough, wheezing CARDIOVASCULAR: Denies chest pain, palpitation, syncope GASTROINTESTINAL/ABDOMINAL: Denies abdominal pain, constipation, diarrhea, nausea or vomiting GENITOURINARY: Denies dysuria or hematuria. MUSCULOSKELETAL: Denies joint pain, tenderness, or trauma. INTEGUMENTARY: Denies rash or itchiness NEUROLOGICAL/PSYCH: Denies anxiety, depression, heat or cold intolerance. PHYSICAL EXAM EYES: Anicteric. Pupils equal and reactive. HENT: No oral thrush seen, moist Oral mucosa NECK: Supple, no JVD or thyromegaly. LUNGS: Good air entry. No rales, no rhonchi. CARDIOVASCULAR: S1, S2 regular. No murmur heard. ABDOMEN: Soft, non tender, bowel sounds present, no organomegaly CENTRAL NERVOUS SYSTEM: Awake, alert, oriented x 3. No focal deficits. SKIN: No rashes, no swelling. LYMPHATICS: No peripheral lymphadenopathy MUSCULOSKELETAL: No joint swelling, erythema or tenderness. EXTREMITIES: No cyanosis or clubbing BACK: No deformity, no pressure ulcer. Vital Signs (last 8hr) Date Time Temp Pulse Resp B/P (MAP) Pulse Ox O2 Delivery O2 Flow Rate FiO2 03/02/25 12:00 98.2 60 16 111/65 95 Room Air 03/02/25 08:00 97.9 60 16 113/79 98 Room Air LABS: Laboratory: Test 03/02/25 05:14 03/01/25 10:11 03/01/25 09:09 Range/Units White Blood Count 6.0 4.8-10.8 K/uL Red Blood Count 4.84 4.50-6.20 MIL/uL Hemoglobin 15.3 14.0-18.0 g/dL Hematocrit 46.4 42-54 % Mean Corpuscular Volume 95.9 79-99 fL Mean Corpuscular Hemoglobin 31.6 27.0-33.0 pg Mean Corpuscular Hemoglobin Concent 33.0 32.0-36.0 g/dL Red Cell Distribution Width 13.1 11.0-15.5 % Platelet Count 170 130-400 K/uL Mean Platelet Volume 8.6 7.5-10.5 fL Immature Granulocyte % (Auto) 0.2 0-1 % Neutrophils (%) (Auto) 68.5 40.0-77.0 % Lymphocytes (%) (Auto) 19.0 L 21.0-51.0 % Monocytes (%) (Auto) 9.8 3.0-13.0 % Eosinophils (%) (Auto) 2.0 0.0-8.0 % Basophils (%) (Auto) 0.5 0.0-5.0 % Neutrophils # (Auto) 4.1 1.8-7.7 K/uL Lymphocytes # (Auto) 1.1 1.0-4.8 K/uL Monocytes # (Auto) 0.6 0.1-1.0 K/uL Eosinophils # (Auto) 0.12 0.00-0.70 K/uL Basophils # (Auto) 0.03 0.00-0.20 K/uL Absolute Immature Granulocyte (auto 0.01 0-1 K/uL Nucleated Red Blood Cells 0.0 0.0-0.19 % Sodium Level 142 136-145 mmol/L Potassium Level 5.0 3.5-5.1 mmol/L Chloride Level 109 101-111 mmol/L Carbon Dioxide Level 27 21-32 mmol/L Blood Urea Nitrogen 20 H 7-18 mg/dL Creatinine 1.0 0.5-1.3 mg/dL Glomerular Filtration Rate Calc 77 >90 mL/min Random Glucose 98 70-105 mg/dL Total Calcium 8.4 L 8.5-10.1 mg/dL Magnesium Level 1.80 1.80-2.40 mg/dL Urine Color LIGHT-YELLOW YELLOW Urine Appearance CLEAR CLEAR Urine pH 6.0 5.0-8.0 Urine Specific [place] 1.020 1.001-1.031 Urine Protein NEGATIVE NEGATIVE mg/dL Urine Glucose (UA) NEGATIVE NEGATIVE mg/dL Urine Ketones NEGATIVE NEGATIVE mg/dL Urine Occult Blood NEGATIVE NEGATIVE Urine Nitrate NEGATIVE NEGATIVE Urine Bilirubin NEGATIVE NEGATIVE mg/dL Urine Urobilinogen 0.2 0.2-1.0 mg/dL Urine Leukocyte Esterase NEGATIVE NEGATIVE [place]/uL Erythrocyte Sedimentation Rate 24 H 0-20 MM/HR Prothrombin Time 10.7 9.6-11.6 SEC Prothromb Time International Ratio 1.01 0.85-1.15 Activated Partial Thromboplast Time 26.1 L 26.3-35.5 SEC Total Bilirubin 0.5 0.2-1.0 mg/dL Direct Bilirubin 0.2 0.0-0.3 mg/dL Aspartate Amino Transf (AST/SGOT) 15 10-37 U/L Alanine Aminotransferase (ALT/SGPT) 17 12-78 U/L Alkaline Phosphatase 75 50-136 U/L Lactate Dehydrogenase 154 81-234 U/L Total Creatine Kinase 20 L 21-232 U/L Troponin I High Sensitivity 7 4-75 ng/L C-Reactive Protein, Quantitative 7.50 H 0.5-3.0 mg/L B-Type Natriuretic Peptide 125 H 0-100 pg/mL Total Protein 6.6 6.0-8.3 g/dL Albumin 3.3 L 3.5-5.0 g/dL Procalcitonin < 0.05 L 0.05-0.5 ng/mL Thyroid Stimulating Hormone (TSH) 0.68 0.36-3.74 uIU/mL DIAGNOSTICS / RADIOLOGY: [facility] [id number] [place] [id number] IMAGING REPORT Addendum PATIENT: JULIA LENTZ MR#: [id number] : 1945 SEX: M AGE: 79 LOCATION: [facility] ORDER STATUS: REG ER REPORT#: [id number] SERVICE [id number] REASON: cp ORDERING PHYSICIAN: BENY DELEON MD PROCEDURE: CXR1VW - CHEST 1VW ADDENDUM REPORT ADDENDUM: Results were shared by telephone at 11:59 am on 03-01-[address] Katelin León. /[place] EXAM: CR Chest, 1 View. CLINICAL HISTORY: Chest pain. COMPARISON: Radiograph dated July 05, 2023 Findings: AP view of the chest is submitted. Broken Mediport catheter tubing oriented cephalad likely terminating within the right internal jugular vein, clinical correlation is advised. Mild left basilar atelectasis. No pleural effusion or pneumothorax. Pacemaker leads are unchanged in positions. Heart size is stable. Pulmonary vessels and interstitial markings are within normal limits. IMPRESSION: 1. Broken Mediport catheter tubing likely terminating within the right internal jugular vein. 2. No pneumothorax or pleural effusion. /[place] DICTATED BY: BEVERLY ALLEN Jr., MD DATE: 03/01/25 1204 ELECTRONICALLY SIGNED BY: DATE: EXAM: CR Chest, 1 View. CLINICAL HISTORY: Chest pain. COMPARISON: Radiograph dated July 05, 2023 Findings: AP view of the chest is submitted. Broken Mediport catheter tubing oriented cephalad likely terminating within the right internal jugular vein, clinical correlation is advised. Mild left basilar atelectasis. No pleural effusion or pneumothorax. Pacemaker leads are unchanged in positions. Heart size is stable. Pulmonary vessels and interstitial markings are within normal limits. IMPRESSION: 1. Broken Mediport catheter tubing likely terminating within the right internal jugular vein. 2. No pneumothorax or pleural effusion. 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 Check labs in the AM Vitals/Labs Vital Signs Date Time Temp Pulse Resp B/P (MAP) Pulse Ox O2 Delivery O2 Flow Rate FiO2 03/03/25 12:00 98.8 62 16 109/73 94 Room Air 03/03/25 08:41 0 21 Laboratory Tests 03/03/25 04:33 Medications Current Medications Sodium Chloride 1,000 ml @ 50 mls/hr Q20H IV Last administered on 03/01/25at 13:10; Start 03/01/25 at 12:30; Stop 03/02/25 at 11:37; Status DC Acetaminophen 650 mg Q6H PRN PO Last administered on 03/03/25at 04:04; Start 03/01/25 at 12:30; Stop 03/03/25 at 13:12; Status DC Ketorolac Tromethamine 15 mg ONCE ONCE IV Last administered on 03/01/25at 13:11; Start 03/01/25 at 12:30; Stop 03/01/25 at 12:31; Status DC Ondansetron HCl 4 mg Q6H PRN IVP; Start 03/01/25 at 12:30; Stop 03/03/25 at 13:12; Status DC Levetiracetam 500 mg BID PO Last administered on 03/03/25at 08:41; Start 03/01/25 at 21:00; Stop 03/03/25 at 13:12; Status DC Ipratropium Bruin 0.5 mg Q6H PRN IH; Start 03/01/25 at 12:30; Stop 03/03/25 at 13:12; Status DC Pantoprazole Sodium 40 mg Q24H IVP Last administered on 03/02/25at 12:34; Start 03/01/25 at 13:00; Stop 03/03/25 at 13:12; Status DC Lidocaine 1 patch ONCE ONCE TP; Start 03/01/25 at 13:30; Stop 03/01/25 at 13:31; Status DC Sacubitril/ Valsartan 1 each BID PO Last administered on 03/03/25at 08:41; Start 03/01/25 at 21:00; Stop 03/03/25 at 13:12; Status DC Lidocaine HCl 50 ml STK-MED ONCE .ROUTE; Start 03/01/25 at 13:10; Stop 03/01/25 at 13:10; Status DC Iohexol 50 ml STK-MED ONCE IV; Start 03/01/25 at 13:10; Stop 03/01/25 at 13:10; Status DC Heparin Sodium (Porcine) 1,000 unit STK-MED ONCE .ROUTE; Start 03/01/25 at 13:10; Stop 03/01/25 at 13:10; Status DC Heparin Sodium/ Sodium Chloride 1,000 ml @ As Directed STK-MED ONCE IV; Start 03/01/25 at 13:11; Stop 03/01/25 at 13:11; Status DC Fentanyl Citrate 100 mcg STK-MED ONCE .ROUTE; Start 03/01/25 at 13:36; Stop 03/01/25 at 13:36; Status DC Midazolam HCl 2 mg STK-MED ONCE .ROUTE; Start 03/01/25 at 13:36; Stop 03/01/25 at 13:36; Status DC Lidocaine HCl 50 ml STK-MED ONCE .ROUTE; Start 03/01/25 at 14:33; Stop 03/01/25 at 14:33; Status DC Clindamycin HCl/ Dextrose 50 ml @ As Directed STK-MED ONCE IV; Start 03/01/25 at 14:35; Stop 03/01/25 at 14:35; Status DC Heparin Sodium (Porcine) 1,000 unit STK-MED ONCE .ROUTE; Start 03/01/25 at 14:36; Stop 03/01/25 at 14:37; Status DC Bacitracin 1 each STK-MED ONCE TP; Start 03/01/25 at 15:19; Stop 03/01/25 at 15:20; Status DC Clindamycin HCl/ Dextrose 50 ml @ As Directed STK-MED ONCE IV; Start 03/01/25 at 15:30; Stop 03/01/25 at 15:30; Status DC Metoprolol Succinate 100 mg DAILY PO; Start 03/02/25 at 09:00; Stop 03/02/25 at 08:34; Status DC Donepezil HCl 5 mg HS PO Last administered on 03/02/25at 20:31; Start 03/02/25 at 21:00; Stop 03/03/25 at 13:12; Status DC Tamsulosin HCl 0.4 mg DAILY PO Last administered on 03/03/25at 08:41; Start 03/02/25 at 09:00; Stop 03/03/25 at 13:12; Status DC Magnesium Sulfate 50 ml @ 0 mls/hr PROTOCOL PRN IV Last administered on 03/02/25at 12:34; Start 03/02/25 at 11:30; Stop 03/03/25 at 13:12; Status DC Heparin Sodium (Porcine) 5,000 unit Q12H SQ; Start 03/02/25 at 14:00; Stop 03/02/25 at 13:33; Status DC BEKAH LEO MD Mar 03, 2025 13:28
== END 2025-03-03 13:00 | disposition home or self-care (01) | DRG 271 ==
LOC: EDH 08:37 → EDHIP 12:03 → 3CH 15:03
PROVIDERS: ADMIT Internal Medicine; ATTEND Internal Medicine
PROC: 02CV3ZZ Extirpation of Matter from Superior Vena Cava, Percutaneous Approach (ICD-10-PCS; principal; 2025-03-01)
PROC: 0JPT3XZ Removal of Tunneled Vascular Access Device from Trunk Subcutaneous Tissue and Fascia, Percutaneous Approach (ICD-10-PCS; 2025-03-01)
PROC: 0JH63XZ Insertion of Tunneled Vascular Access Device into Chest Subcutaneous Tissue and Fascia, Percutaneous Approach (ICD-10-PCS; 2025-03-01)
PROC: 05PY33Z Removal of Infusion Device from Upper Vein, Percutaneous Approach (ICD-10-PCS; 2025-03-01)
PROC: 05HM33Z Insertion of Infusion Device into Right Internal Jugular Vein, Percutaneous Approach (ICD-10-PCS; 2025-03-01)
PROC: B5131ZA Fluoroscopy of Right Jugular Veins using Low Osmolar Contrast, Guidance (ICD-10-PCS; 2025-03-01)
PROC: B543ZZA Ultrasonography of Right Jugular Veins, Guidance (ICD-10-PCS; 2025-03-01)
DX: T82.514A Breakdown (mechanical) of infusion catheter, initial encounter (principal); J98.11 Atelectasis; I10 Essential (primary) hypertension; G44.209 Tension-type headache, unspecified, not intractable; G43.909 Migraine, unspecified, not intractable, without status migrainosus; G40.909 Epilepsy, unspecified, not intractable, without status epilepticus; Z85.028 Personal history of other malignant neoplasm of stomach; Z85.46 Personal history of malignant neoplasm of prostate; Z86.73 Personal history of transient ischemic attack (TIA), and cerebral infarction without residual deficits; Z88.0 Allergy status to penicillin; Z90.5 Acquired absence of kidney; Z95.0 Presence of cardiac pacemaker; Y92.89 Other specified places as the place of occurrence of the external cause; Y71.2 Prosthetic and other implants, materials and accessory cardiovascular devices associated with adverse incidents
CPT/HCPCS: 36415; 36582; 37197; 70450; 71045; 73030; 73200; 80048; 80076; 81003; 82550; 83615; 83735; 83880; 84145; 84443; 84484; 85025; 85027; 85610; 85651; 85730; 86140; 87635; 87804; 93005; 96374; 99156; 99157; 99285; C1769; C1773; C1894; G0378; J1644; J1885; J2250; J2470; J3010; J3475; J3490; J7030; Q9967; C1788

== ENCOUNTER 2025-03-10 12:54 | Emergency (ER) | payer MEDICARE, MEDICAID ==
[~2025-03-10] VITALS: Ht 165.1 cm; Wt 78.9 kg
[~2025-03-10 12:54] MED LIST changes: +ASPI1TAB7 PO; +DONE5TAB33 PO; +DOXY100C5 PO; -FAMO20TA8 PO; +FAMO40TA7 PO; +IBUP-1492 PO; -LEVE-43 PO; +LEVE500T19 PO; +METR-172 PO; +SACU1TAB PO
--- NOTE | 2025-03-10 13:02 | NUR ---
PT TAKEN TO CT AT THIS TIME.
--- NOTE | 2025-03-10 13:07 | ERN ---
General Chief Complaint: Stroke Symptoms Stated Complaint: STROKE SYMPTOM Time Seen by MD: 12:56 Source: patient, family History of Present Illness Initial Comments In his is a 79-year-old male coming in complaining of left upper extremity numbness left facial numbness which began 30 minutes prior to arrival. Per patient upon evaluating an triage symptoms has been improved. Allergies: Coded Allergies: Penicillins (Unverified Allergy, Unknown, 09/07/21) Home Meds Active Scripts Aspirin/Acetaminophen/Caffeine (Excedrin Migraine Caplet) 250 Mg-250 Mg-65 Mg Tablet, 1 EACH PO BIDPC for 15 Days, #30 TAB Prov:JANIYA THOMPSON MD 03/03/25 Reported Medications Donepezil HCl (Donepezil HCl) 5 Mg Tablet, 1 TAB PO HS 03/02/25 Sacubitril/Valsartan (Entresto 24 mg-26 mg Tablet) 24 Mg-26 Mg Tablet, 1 TAB PO BID 03/02/25 Famotidine (Famotidine) 40 Mg Tablet, 1 TAB PO DAILY 03/02/25 Ibuprofen (Ibuprofen) 600 Mg Tablet, 1 TAB PO TID PRN for PAIN 03/02/25 Doxycycline Hyclate (Doxycycline Hyclate) 100 Mg Capsule, 1 CAP PO BID 03/02/25 Metronidazole (Metronidazole) 500 Mg Tablet, 1 TAB PO TID 03/02/25 Levetiracetam (Levetiracetam) 500 Mg Tablet, 1 TAB PO BID 03/02/25 Metoprolol Succinate (Metoprolol Succinate) 100 Mg Tab.er.24h, 100 MG PO DAILY, TAB 07/05/23 Megestrol Acetate (Megace 40 mg Tabs) 40 Mg Tablet, 40 MG PO BID, TAB 07/05/23 Tamsulosin HCl (Flomax) 0.4 Mg Cap.er.24h, 0.4 MG PO DAILY, CAPSULE. 09/07/21 Hydrocodone/Acetaminophen (Hydrocodon-Acetaminophen 5-325) 1 Each Tablet, 1 EACH PO Q4HPRN PRN for PAIN 7-10, TAB 09/07/21 Discontinued Reported Medications Famotidine (Famotidine) 20 Mg Tablet, 20 MG PO BID, TAB 07/05/23 Discontinued Scripts Levetiracetam (Keppra) 500 Mg Tablet, 500 MG PO BID for 15 Days, #30 TAB 0 Refills Prov:KRISTIAN,JYOTI L APPEALS BOARD REFEREE 09/08/21 Past Medical History Past Medical History: CAD, Cancer, Seizure, Other Medical History Other: prostate ca Past Surgical History: Pacer/AICD, Unknown Surgical History Other: bel-cath ROS Dictation CONSTITUTIONAL: No chills, no fever, no weakness, no diaphoresis, no malaise. HEAD/FACE: No signs of trauma. EENT: No eye pain, no blurred vision, no tearing, no double vision, no ear pain, no ear discharge, no nose pain, no nasal congestion, no throat pain, no throat swelling, no mouth pain. RESPIRATORY: No cough, no orthopnea, no SOB, no stridor, no wheezing. CARDIOVASCULAR: No chest pain, no edema, no palpitations, no syncope. GASTROINTESTINAL/ABDOMINAL: No abdominal pain, no constipation, no diarrhea, no nausea, no vomiting. GENITOURINARY: No abnormal discharge, no dysuria, no frequent urination, no hematuria. No complaints of pain in the genitals. MUSCULOSKELETAL: No back pain, no gout, no joint pain, no joint swelling, no muscle pain, no muscle stiffness, no neck pain. INTEGUMENTARY: No change in color, no change in hair/nails, no dryness, no lesion, no lumps, no rash. NEUROLOGICAL/PSYCH: No anxiety, not depressed, no emotional problem, no headache, no numbness, no pre-existing deficit, no history of seizures, no tremors, no weakness. HEMATOLOGIC/LYMPHATIC: Not anemic, no history of blood clots, no apparent bleed ing, no bruising, glands not swollen. All Systems Negative, Except as Noted. Physical Exam Physical Exam Dictation VITAL SIGNS: Reviewed. GENERAL APPEARANCE: Alert, oriented x3, no acute distress, obese. HEAD AND FACE: Non-traumatic. EYES: PERRL, pink conjunctivas, eyelid no trauma, anterior chamber clear. EARS: Pinnas intact and no signs of trauma or erythema. Ear canals clear and no discharge. TMs no erythema. NOSE: No discharge, no bleeding. OROPHARYNX: Mouth normal, teeth no caries, tongue pink. Pharynx clear, no erythema. Tonsils no exudates, no abscesses noted. Mucous membrane moist. NECK: Supple, non-tender, no thyromegaly, no masses, no JVD, no bruits. BREAST: Deferred. CHEST: No tenderness, no crepitus, no paradoxical movement, no retractions. LUNGS: Clear, well-ventilated, symmetric, no rales, no wheezing, no rhonchi, no stridor, good breath sounds bilaterally. HEART: Regular rate, regular rhythm, no murmur, no gallops. VASCULAR: No peripheral edema. ABDOMEN: Soft, positive bowel sounds, nondistended, no guarding, nontender, no rebound, no masses no hepatomegaly, no splenomegaly, no King's sign, no hernias. RECTAL: Deferred. GENITAL: Deferred. NEUROLOGICAL: Normal speech, gross motor function intact, gross sensory function intact. MUSCULOSKELETAL: Neck nontender, full range of motion, back nontender, full range of motion. EXTREMITIES: Nontender, full range of motion. SKIN: Color pink, dry, no turgor, no rash, no lacerations, no abrasions, no contusions. LYMPHATICS: Deferred. Stroke Patient?: No Is Patient Candidate for t-PA?: No Contraindication for t-PA?: Medical Contraindication NIH STROKE SCALE: NIH STROKE SCALE Response (Comments) Value Level of Consciousness Alert 0 Ask patient month and their age Answers both correct 0 Command to open eyes, make fist and let go Obeys both correct 0 Best gaze (horizontal eye movement) Normal 0 Visual Field Testing No Visual Field Loss 0 Facial Paresis Normal / Symmetrical 0 Motor Function - Left Arm Normal 0 Motor Function - Right Arm Normal 0 Motor Function - Left Leg Normal 0 Motor Function - Right Leg Normal 0 Limb Ataxia No Ataxia 0 Sensory-pin prick to arms, legs, trunk and face Mild to Moderate Decrease 1 Best Language (describe picture, name items and read) No Aphasia 0 Dysarthria (read several words) Normal Articulation 0 Extinction and Inattention Normal 0 Total 1 Results Laboratory and Microbiology Lab and Micro Result Laboratory Tests Test 03/10/25 12:59 03/10/25 13:00 Whole Blood Glucose 152 MG/DL (70-110) H White Blood Count 4.3 K/uL (4.8-10.8) L Red Blood Count 4.79 MIL/uL (4.50-6.20) Hemoglobin 15.2 g/dL (14.0-18.0) Hematocrit 47.1 % (42-54) Mean Corpuscular Volume 98.3 fL (79-99) Mean Corpuscular Hemoglobin 31.7 pg (27.0-33.0) Mean Corpuscular Hemoglobin Concent 32.3 g/dL (32.0-36.0) Red Cell Distribution Width 13.2 % (11.0-15.5) Platelet Count 182 K/uL (130-400) Mean Platelet Volume 9.4 fL (7.5-10.5) Immature Granulocyte % (Auto) 0.5 % (0-1) Neutrophils (%) (Auto) 65.8 % (40.0-77.0) Lymphocytes (%) (Auto) 24.0 % (21.0-51.0) Monocytes (%) (Auto) 6.5 % (3.0-13.0) Eosinophils (%) (Auto) 2.3 % (0.0-8.0) Basophils (%) (Auto) 0.9 % (0.0-5.0) Neutrophils # (Auto) 2.9 K/uL (1.8-7.7) Lymphocytes # (Auto) 1.0 K/uL (1.0-4.8) Monocytes # (Auto) 0.3 K/uL (0.1-1.0) Eosinophils # (Auto) 0.10 K/uL (0.00-0.70) Basophils # (Auto) 0.04 K/uL (0.00-0.20) Absolute Immature Granulocyte (auto 0.02 K/uL (0-1) Nucleated Red Blood Cells 0.0 % (0.0-0.19) Prothrombin Time 11.1 SEC (9.6-11.6) Prothromb Time International Ratio 1.05 (0.85-1.15) Activated Partial Thromboplast Time 27.4 SEC (26.3-35.5) Sodium Level 141 mmol/L (136-145) Potassium Level 4.8 mmol/L (3.5-5.1) Chloride Level 107 mmol/L (101-111) Carbon Dioxide Level 27 mmol/L (21-32) Blood Urea Nitrogen 17 mg/dL (7-18) Creatinine 1.0 mg/dL (0.5-1.3) Glomerular Filtration Rate Calc 77 mL/min (>90) Random Glucose 141 mg/dL (70-105) H Total Calcium 8.5 mg/dL (8.5-10.1) Total Creatine Kinase 52 U/L (21-232) # Troponin I High Sensitivity 8 ng/L (4-75) LDL Cholesterol 52 mg/dL (0-99) Labs Reviewed?: Yes EKG/XRAY/US/CT/MRI EKG Comment Date 03/10/2025 time 1:16 p.m. Ventricular rate [address] wave elevation or depression CT Scan Comment IMAGING REPORT Signed PATIENT: JULIA LENTZ MR#: [id number] : 1945 SEX: M AGE: 79 LOCATION: [facility] ORDER 58 STATUS: REG REPORT#: [id number] SERVICE 58 REASON: STROK ALERT ORDERING PHYSICIAN: BENY DELEON MD PROCEDURE: HEAD WO - CT HEAD/BRAIN W/O CONTRAST EXAM: CT Head Without IV contrast. CLINICAL HISTORY: STROKE ALERT TECHNIQUE: Axial computed tomography images of the head/brain without intravenous contrast. COMPARISON: Compared with the previous CT dated 03/01 FINDINGS: BRAIN: Stable hypodense area with gliosis in the right occipital lobe, suggesting sequelae of prior insult. No evidence of acute hemorrhage. No mass lesion. No CT evidence for acute territorial infarct. No midline shift or extra-axial collections. VENTRICLES: No hydrocephalus. ORBITS: The orbits are unremarkable. SINUSES AND MASTOIDS: The paranasal sinuses and mastoid air cells are clear. BONES: No fracture. SOFT TISSUES: Unremarkable. IMPRESSION: 1. No acute intracranial findings. /[place] DICTATED BY: BEVERLY ALLEN Jr., MD DATE: 03/10/251429 ELECTRONICALLY SIGNED BY: BEVERLY ALLEN Jr., MD DATE: 03/10/251429 [address] [address] IMAGING REPORT Signed PATIENT: JULIA LENTZ MR#: [id number] : 1945 SEX: M AGE: 79 LOCATION: [facility] ORDER 54 STATUS: REG ER REPORT#: [id number] SERVICE 54 REASON: left sided weakness ORDERING PHYSICIAN: BENY DELEON MD PROCEDURE: CTA [facility] - CT ANGIO HEAD AND NECK EXAM: CTA of the brain with 3D reconstructions; CTA of the neck with 3D reconstructions HISTORY: Left-sided weakness TECHNIQUE: CT angiogram of the brain/neck was obtained with IV contrast. Coronal and sagittal reconstructions were performed. 3D reconstructed images were obtained. CT scans are performed using one of these three dose reduction techniques: automated exposure control, adjustment of the mA and/or kV according to patient size, or use of iterative reconstruction techniques. COMPARISON: None FINDINGS: Groundglass opacity seen in the lungs. Minimal calcification seen in the aorta. No significant stenosis of the common and internal carotid arteries hypoplastic right vertebral artery vertebral arteries are patent. Anterior cerebral, middle cerebral arteries are patent. Minimal calcification seen in the intracranial internal carotid arteries posterior cerebral arteries are patent distally. Hypoplastic right P1 artery with dominant right P-comm. Basilar artery is patent. Hypoplastic right vertebral artery with poor visualization of the superior aspect. IMPRESSION: Cerebral vasculature is patent. No significant carotid stenosis. Hypoplastic right vertebral artery. /[place] DICTATED BY: FRED HUYNH MD DATE: 03/10/251756 ELECTRONICALLY SIGNED BY: FRED HUYNH MD DATE: 03/10/251756 MDM MDM: Differential diagnosis: Stroke, CVA,,medication side effect Rationale: Tests considered and ordered secondary to shared decision making include: Previous outside records reviewed: Old ER visits. Risk of complication and/or morbidity or mortality of patient management: None Medications-Per medication reconciliation Need for hospitalization: Patient does not meet criteria for hospitalization. Need for emergency major/minor surgery: No Patient is a 79-year-old gentleman coming in complaining of left arm tingling and left facial tingling with episode of possible aphasia. Teleneurologist evaluated patient based on their findings stroke unlikely CT head CT angio were performed no acute findings were present CT angio needed to be performed has not was strict recommendation by teleneurologist. Throughout ER visit patient has been stable images in his studies are negative. Patient will be discharged in stable condition I did advised him appropriate follow up with PCP and his neurologist since he does has a history of seizure. Patient Did not want to be admitted when I did advise him that we could a transfer him to be [facility] for further evaluation. Patient refused. ED Course Orders Procedure Category Date Status Time Cbc With Differential LAB 03/10/25 Complete 12:58 Ct Head/Brain W/O CT 03/10/25 Resulted Contrast 12:59 Prothrombin Time With LAB 03/10/25 Complete INR 12:58 Partial LAB 03/10/25 Complete Thromboplastin Time 12:58 Chest 1vw RAD 03/10/25 Resulted 12:58 12 Lead Ekg Tracing- EKG 03/10/25 Resulted Technical 12:58 Creatine Kinase, Total LAB 03/10/25 Complete 12:58 Ldl Direct LAB 03/10/25 Complete 12:58 Troponin I High LAB 03/10/25 Complete Sensitivity 12:58 Urinalysis Profile LAB 03/10/25 Logged 12:58 Bedside Glucose CPOE 03/10/25 Transmitted Fingerstick 12:58 Basic Metabolic Panel LAB 03/10/25 Complete 12:58 Ct Angio Head And Neck CT 03/10/25 Resulted 13:55 Iohexol (Omnipaque) PHA 03/10/25 Complete 14:11 Current Medications Medications (Trade) Dose Ordered Sig/Lulu Route PRN Reason Start Time Stop Time Status Last Admin Dose Admin Iohexol (Omnipaque) 75 ml STK-MED ONCE IV 03/10/25 14:11 03/10/25 14:12 DC Vital Signs Date Time Temp Pulse Resp B/P (MAP) Pulse Ox O2 Delivery O2 Flow Rate FiO2 03/10/25 14:05 98.2 58 16 121/68 100 Room Air* 0 21 03/10/25 13:00 97.5 52 16 109/70 97 Room Air* 0 21 03/10/25 12:56 97.5 52 16 109/70 97 Room Air 0 DX & DISP Disposition: Discharge Departure Impression: Primary Impression: Muscle strain of left upper arm Additional Impression: Hx of seizure disorder Condition: Stable Additional Instructions: FOLLOW-UP WITH PRIMARY CARE PROVIDER IN 1 TO 2 DAYS. TAKE MEDICATIONS DIRECTED HERE IN THE EMERGENCY ROOM. OKAY TO CONTINUE HOME MEDICATIONS UNLESS OTHERWISE DISCUSSED DURING YOUR VISIT IN THE EMERGENCY ROOM TODAY. RETURN TO YOUR NEAREST EMERGENCY ROOM IF SYMPTOMS WORSEN OR IF THERE IS NO IMPROVEMENT. CALL 911 IF YOU NEED IMMEDIATE ASSISTANCE. TAKE TYLENOL [id number] NEEDED AND IF NO CONTRAINDICATIONS ARE PRESENT. INCREASE ORAL HYDRATION. A WOUND CULTURE OR URINE CULTURE WAS ORDERED HERE IN THE EMERGENCY ROOM DEPARTMENT PLEASE FOLLOW-UP WITH PRIMARY CARE PROVIDER AND ADVISE THEM TO GET REPORTS FROM OUR FACILITY. IF YOU HAD ANY KRUPA WRAP/SPLINTS THAT WERE APPLIED HERE, PLEASE DO NOT REMOVE THEM UNTIL YOU SEE YOUR PRIMARY CARE OR SPECIALTY. Referrals: Referrals: ELIZA SAHNI MD (PCP) MATTHEW CAMARA MD Time of Disposition: 17:20 BENY DELEON MD Mar 10, 2025 13:07
--- NOTE | 2025-03-10 13:14 | NUR ---
PT BACK FROM CT 13:11.
[2025-03-10 13:30] LABS: IMMATURE GRANULOCYTE ABSOLUTE 0.02 K/uL (0-1); NUCLEATED RED BLOOD CELLS 0.0 % (0.0-0.19); PLATELET COUNT (AUTO) 182 K/uL (130-400); RED BLOOD CELL COUNT(AUTO) 4.79 MIL/uL (4.50-6.20); RED CELL DISTRIBUTION WIDTH 13.2 % (11.0-15.5); WHITE BLOOD COUNT (AUTO) 4.3 K/uL (4.8-10.8)
--- NOTE | 2025-03-10 13:31 | HMCIMG ---
EXAM: CT Head Without IV contrast. CLINICAL HISTORY: STROKE ALERT TECHNIQUE: Axial computed tomography images of the head/brain without intravenous contrast. COMPARISON: Compared with the previous CT dated 03/01 FINDINGS: BRAIN: Stable hypodense area with gliosis in the right occipital lobe, suggesting sequelae of prior insult. No evidence of acute hemorrhage. No mass lesion. No CT evidence for acute territorial infarct. No midline shift or extra-axial collections. VENTRICLES: No hydrocephalus. ORBITS: The orbits are unremarkable. SINUSES AND MASTOIDS: The paranasal sinuses and mastoid air cells are clear. BONES: No fracture. SOFT TISSUES: Unremarkable. IMPRESSION: 1. No acute intracranial findings. /[place]
--- NOTE | 2025-03-10 13:45 | HMCIMG ---
EXAM: CR Chest, 1 View. CLINICAL HISTORY: cp COMPARISON: Radiograph dated March 01, 2025 Findings: AP view of the chest is submitted. Right Mediport catheter tip projects at the distal SVC. There is no pneumothorax. Mild bibasilar atelectasis. No pleural effusion. Pacemaker leads overlie the right atrium and right ventricle. Heart size and pulmonary vessels are within normal limits. IMPRESSION: 1. No acute cardiopulmonary findings. 2. Right Mediport catheter tip at the distal SVC. /[place]
[2025-03-10 13:51] LABS: CREATINE KINASE, TOTAL 52.0 U/L (21-232); CREATININE 1.0 mg/dL (0.5-1.3); GLOMERULAR FILTR. RATE CALC 77.0 mL/min (>90); GLUCOSE,RANDOM 141.0 mg/dL (70-105); LDL DIRECT 52.0 mg/dL (0-99); SODIUM SERUM 141.0 mmol/L (136-145); UREA NITROGEN, BLOOD 17.0 mg/dL (7-18)
[2025-03-10 13:58] LABS: INR 1.05 (0.85-1.15)
--- NOTE | 2025-03-10 14:04 | EKG ---
[facility] Test Date: 2025-03-10 Test Time: 13:16:13 Pat Name: MICKY LENTZ Department: [facility] Room: Gender: M Utilization Supervisor: [id number] : 1945 Requested By: BENY DELEON Order Number: [id number] Reading MD: Micky Dupree Measurements Intervals [place] Rate: 67 P: 0 CO: 0 QRS: -70 QRSD: 174 T: 78 QT: 461 QTc: 488 Interpretive Statements Afib/flutter and ventricular-paced rhythm Compared to ECG 03/01/2025 08:54:51 No significant changes Electronically Signed On 03-10-2025 16:33:23 CDT by Micky Dupree Please click the below link to view image of tracing.
[2025-03-10] MEDS ORDERED: IOHEXOL-350 75 ML VIAL IV ONE (14:11)
--- NOTE | 2025-03-10 14:30 | NUR ---
CT ON HOLD, PT PENDING PROPER IV FOR CT ANGIO.
--- NOTE | 2025-03-10 16:52 | HMCIMG ---
EXAM: CTA of the brain with 3D reconstructions; CTA of the neck with 3D reconstructions HISTORY: Left-sided weakness TECHNIQUE: CT angiogram of the brain/neck was obtained with IV contrast. Coronal and sagittal reconstructions were performed. 3D reconstructed images were obtained. CT scans are performed using one of these three dose reduction techniques: automated exposure control, adjustment of the mA and/or kV according to patient size, or use of iterative reconstruction techniques. COMPARISON: None FINDINGS: Groundglass opacity seen in the lungs. Minimal calcification seen in the aorta. No significant stenosis of the common and internal carotid arteries hypoplastic right vertebral artery vertebral arteries are patent. Anterior cerebral, middle cerebral arteries are patent. Minimal calcification seen in the intracranial internal carotid arteries posterior cerebral arteries are patent distally. Hypoplastic right P1 artery with dominant right P-comm. Basilar artery is patent. Hypoplastic right vertebral artery with poor visualization of the superior aspect. IMPRESSION: Cerebral vasculature is patent. No significant carotid stenosis. Hypoplastic right vertebral artery. /[place]
[2025-03-10 17:49] VITALS: BP 118/76; PULSE 63; RESP 18; TEMP 98.2; O2SAT 98
--- NOTE | 2025-03-10 18:01 | NUR ---
PT STABLE AAOX4 NO C/O PAIN NOW, PT GIVEN INSTRUCTION FOR HOME , TWO IV REMOVED CATHETER INTACT, PT DRIVEN HOME BY DAUGHTER.
== END 2025-03-10 18:06 | disposition home or self-care (01) ==
LOC: EDH 12:54
DX: S46.912A Strain of unspecified muscle, fascia and tendon at shoulder and upper arm level, left arm, initial encounter (principal); G40.909 Epilepsy, unspecified, not intractable, without status epilepticus; I25.10 Atherosclerotic heart disease of native coronary artery without angina pectoris; Z85.46 Personal history of malignant neoplasm of prostate; Z79.899 Other long term (current) drug therapy; Z88.0 Allergy status to penicillin; Z79.01 Long term (current) use of anticoagulants; X58.XXXA Exposure to other specified factors, initial encounter; Y93.89 Activity, other specified; Y92.89 Other specified places as the place of occurrence of the external cause; Y99.8 Other external cause status
CPT/HCPCS: 99285; 70496; 71045; 82550; 83721; 84484; 80048; 85025; 85610; 85730; 82948; 36415; 70498; 93005; 70450; Q9967